=== PATIENT | male | born 1950 | race Hispanic/Latino ===

== ENCOUNTER 2019-12-29 18:15 | Emergency (ER) | payer OTHER ==
[2019-12-29] MEDS ORDERED: TOBRAMYCIN SULF 0.3% OPTH OINT ONE (19:06)
[2019-12-29] MEDS ORDERED: TETRACAINE HCL 0.5% 4ML OPTH ONE (19:06)
[2019-12-29] MEDS ORDERED: FLUORESCEIN SODIUM 1 MG/WRAP ONE (19:06)
--- NOTE | 2019-12-29 19:59 | ER ---
Nurse's Notes [facility] Name: Feliz Aguilar Age: 69 yrs Sex: Male : 1950 Arrival Date: 12/29/2019 Time: 18:19 Bed 16 Private MD: Hong Enriquez H Diagnosis: Injury of conjunctiva and corneal abrasion without foreign body Presentation: 12/28 18:23 Chief complaint: Patient states: Feels like something is in right eye since last night. ll1 + redness and watering. Coronavirus screen: Client denies travel out of the [place] in the last 14 days. At this time, the client does not indicate any symptoms associated with coronavirus-19. Ebola Screen: Patient denies travel to an Ebola-affected area in the 21 days before illness onset. Initial Sepsis Screen: Does the patient meet any 2 criteria? No. Patient's initial sepsis screen is negative. Risk Assessment: Do you want to hurt yourself or someone else? Patient reports no desire to harm self or others. Onset of symptoms was December 28, 2019. 18:23 Method Of Arrival: Ambulatory ll1 18:23 Acuity: RAYNA 3 ll1 Triage Assessment: 18:30 General: Appears in no apparent distress. uncomfortable, Behavior is cooperative, bp appropriate for age, anxious. Pain: Complains of pain in right eye. EENT: Reports pain in right eye. Neuro: No deficits noted. Cardiovascular: No deficits noted. Respiratory: No deficits noted. GI: No signs and/or symptoms were reported involving the gastrointestinal system. : No signs and/or symptoms were reported regarding the genitourinary system. Derm: No deficits noted. Musculoskeletal: No deficits noted. Historical: - Allergies: 18:25 No Known Allergies; ll1 - PSHx: 18:25 Cholecystectomy; ll1 - Immunization history:: Flu vaccine is not up to date. - Social history:: Smoking status: Patient denies any tobacco usage or history of. Screenin:30 Abuse screen: Denies threats or abuse. Denies injuries from another. Nutritional bp screening: No deficits noted. Tuberculosis screening: No symptoms or risk factors identified. Fall Risk None identified. Assessment: 18:30 General: SEE TRIAGE NOTE. bp 19:20 General: Appears in no apparent distress. comfortable, Behavior is calm, cooperative, rr5 appropriate for age. Neuro: Level of Consciousness is awake, alert, obeys commands, Oriented to person, place, time. Cardiovascular: Capillary refill < 3 seconds Patient's skin is warm and dry. Respiratory: Airway is patent Respiratory effort is Respiratory pattern is regular, symmetrical. GI: No signs and/or symptoms were reported involving the gastrointestinal system. : No signs and/or symptoms were reported regarding the genitourinary system. EENT: Sclera/Cornea are reddened in outer aspect of conjuctiva of right eye and inner aspect of conjuctiva of right eye. Derm: Skin is intact, is healthy with good turgor, Skin temperature is warm. Musculoskeletal: Capillary refill < 3 seconds. 19:20 Pain: Complains of pain in right eye. rr5 20:12 Reassessment: Patient appears in no apparent distress at this time. Patient is alert, rr5 oriented x 3, equal unlabored respirations, skin warm/dry/pink. discharge instruction given and explained without complaints made. Vital Signs: 18:23 BP 154 / 111; Pulse 79; Resp 18; Temp 98.5; Pulse Ox 98% ; Pain 5/10; ll1 19:50 BP 129 / 72; Pulse 64; Resp 16; Temp 98.5; Pulse Ox 100% ; rr5 ED Course: 18:19 Patient arrived in ED. mr 18:19 Hong Enriquez DO is Private Physician. mr 18:24 Triage completed. ll1 18:25 Arm band placed on Patient placed in an exam room, on a stretcher. ll1 18:30 Patient has correct armband on for positive identification. Bed in low position. Call bp light in reach. Side rails up X2. 18:41 Shabnam Whelan FNP-C is [facility]. snw 18:41 Jasmeet Park MD is Attending Physician. snw 18:44 Dereck John, SOFIE is Primary Nurse. bp 19:40 Assist provider with eye exam of right eye. using fluorescein stain, Performed by rr5 Shabnam LAWLER Patient tolerated well. 20:12 Patient did not have IV access during this emergency room visit. rr5 Administered Medications: 18:56 Drug: Fluorescein Strip 1 strip {Note: AT B/S.} Route: Ophthalmic; Site: right eye; bp 18:56 Drug: Tetracaine Drops 0.5 % 1 drops {Note: AT B/S.} Route: Ophthalmic; Site: right eye;bp 18:56 Drug: Tobramycin Ointment (0.3 %) 1 application {Note: AT B/S.} Route: Ophthalmic; bp Site: right eye; Outcome: 19:58 Discharge ordered by . yvrose 20:12 Discharged to home ambulatory. rr5 20:12 Condition: stable 20:12 Discharge instructions given to patient, Instructed on discharge instructions, follow up and referral plans. medication usage, Demonstrated understanding of instructions, follow-up care, medications, Prescriptions given X 1. 20:14 Patient left the ED. rr5 Signatures: Shabnam Whelan, NURIS AUTO OVERHAULER-Vonda Castillo Brian, RN RN bp Austin Mendiola RN RN rr5 Eleazar Easley RN RN ll1 Corrections: (The following items were deleted from the chart) 20:14 20:12 No provider procedures requiring assistance completed. rr5 rr5
--- NOTE | 2019-12-29 19:59 | EDPHYS ---
Physician Documentation [facility] Name: Feliz Aguilar Age: 69 yrs Sex: Male : 1950 Arrival Date: 12/29/2019 Time: 18:19 Bed 16 Private MD: Hong Enriquez H ED Physician Jasmeet Park HPI: 12/28 20:05 This 69 yrs old Male presents to ER via Ambulatory with complaints of Eye snw Problem. 19:48 The patient is experiencing pain, tearing. Onset: The symptoms/episode began/occurred snw suddenly, yesterday. Duration: the symptoms are continuous. Associated signs and symptoms: Pertinent positives: None. Patient does not utilize any form of vision correction. Severity of symptoms: At their worst the symptoms were moderate in the emergency department the symptoms are unchanged. The patient has not experienced similar symptoms in the past. It is unknown whether or not the patient has recently seen a physician. Historical: - Allergies: 18:25 No Known Allergies; ll1 - PSHx: 18:25 Cholecystectomy; ll1 - Immunization history:: Flu vaccine is not up to date. - Social history:: Smoking status: Patient denies any tobacco usage or history of. ROS: 19:48 Constitutional: Negative for fever, chills, and weight loss, ENT: Negative for injury, snw pain, and discharge, Neck: Negative for injury, pain, and swelling, Cardiovascular: Negative for chest pain, palpitations, and edema, Respiratory: Negative for shortness of breath, cough, wheezing, and pleuritic chest pain, Abdomen/GI: Negative for abdominal pain, nausea, vomiting, diarrhea, and constipation, Back: Negative for injury and pain, : Negative for injury, bleeding, discharge, and swelling, MS/Extremity: Negative for injury and deformity, Skin: Negative for injury, rash, and discoloration, Neuro: Negative for headache, weakness, numbness, tingling, and seizure, Psych: Negative for depression, anxiety, suicide ideation, homicidal ideation, and hallucinations. 19:48 Eyes: Positive for foreign body sensation, pain, tearing, of the iris of right eye and inner aspect of conjuctiva of right eye. Exam: 19:47 Constitutional: This is a well developed, well nourished patient who is awake, alert, snw and in no acute distress. Head/Face: Normocephalic, atraumatic. ENT: Nares patent. No nasal discharge, no septal abnormalities noted. Tympanic membranes are normal and external auditory canals are clear. Oropharynx with no redness, swelling, or masses, exudates, or evidence of obstruction, uvula midline. Mucous membranes moist. Neck: Trachea midline, no thyromegaly or masses palpated, and no cervical lymphadenopathy. Supple, full range of motion without nuchal rigidity, or vertebral point tenderness. No Meningismus. Chest/axilla: Normal chest wall appearance and motion. Nontender with no deformity. No lesions are appreciated. Cardiovascular: Regular rate and rhythm with a normal S1 and S2. No gallops, murmurs, or rubs. Normal PMI, no JVD. No pulse deficits. Respiratory: Lungs have equal breath sounds bilaterally, clear to auscultation and percussion. No rales, rhonchi or wheezes noted. No increased work of breathing, no retractions or nasal flaring. Abdomen/GI: Soft, non-tender, with normal bowel sounds. No distension or tympany. No guarding or rebound. No evidence of tenderness throughout. Back: No spinal tenderness. No costovertebral tenderness. Full range of motion. Skin: Warm, dry with normal turgor. Normal color with no rashes, no lesions, and no evidence of cellulitis. MS/ Extremity: Pulses equal, no cyanosis. Neurovascular intact. Full, normal range of motion. Neuro: Awake and alert, GCS 15, oriented to person, place, time, and situation. Cranial nerves II-XII grossly intact. Motor strength 5/5 in all extremities. Sensory grossly intact. Cerebellar exam normal. Normal gait. Psych: Awake, alert, with orientation to person, place and time. Behavior, mood, and affect are within normal limits. 19:47 Eyes: Periorbital structures: appear normal, Pupils: no acute changes, Extraocular movements: no acute changes, Conjunctiva: normal, Corneas: abrasion, that is small, a fluorescein strip employed to appreciate the findings, over pupil, Sclera: no appreciated abnormality, Lids and lashes: appear normal. Vital Signs: 18:23 BP 154 / 111; Pulse 79; Resp 18; Temp 98.5; Pulse Ox 98% ; Pain 5/10; ll1 19:50 BP 129 / 72; Pulse 64; Resp 16; Temp 98.5; Pulse Ox 100% ; rr5 Procedures: 19:57 Eye Exam: corneal abrasion over pupil noted. snw MDM: 19:12 Patient medically screened. snw 19:48 Data reviewed: vital signs, nurses notes. Data interpreted: Pulse oximetry: on room air snw is 100 %. Interpretation: normal. Counseling: I had a detailed discussion with the patient and/or guardian regarding: the historical points, exam findings, and any diagnostic results supporting the discharge/admit diagnosis, the need for outpatient follow up, to return to the emergency department if symptoms worsen or persist or if there are any questions or concerns that arise at home. Special discussion: Based on the history and exam findings, there is no indication for further emergent testing or inpatient evaluation. I discussed with the patient/guardian the need to see the opthamologist for further evaluation of the symptoms. 12/28 18:45 Order name: Eye Tray; Complete Time: 18:57 snw 12/28 19:47 Order name: VS Recheck; Complete Time: 19:51 snw Administered Medications: 18:56 Drug: Fluorescein Strip 1 strip {Note: AT B/S.} Route: Ophthalmic; Site: right eye; bp 18:56 Drug: Tetracaine Drops 0.5 % 1 drops {Note: AT B/S.} Route: Ophthalmic; Site: right eye;bp 18:56 Drug: Tobramycin Ointment (0.3 %) 1 application {Note: AT B/S.} Route: Ophthalmic; bp Site: right eye; Disposition: 12/29 14:55 Co-signature as Attending Physician, Jasmeet Park MD I agree with the assessment and kdr plan of care. Disposition: 12/29/19 19:58 Discharged to Home. Impression: Injury of conjunctiva and corneal abrasion without foreign body. - Condition is Stable. - Discharge Instructions: Corneal Abrasion. - Prescriptions for Diclofenac Sodium 75 mg Oral Tablet Sustained Release - take 1 tablet by ORAL route 2 times per day; 30 tablet. - Medication Reconciliation Form, Thank You Letter, Antibiotic Education, Prescription Opioid Use form. - Follow up: Emergency Department; When: As needed; Reason: Worsening of condition. Follow up: Private Physician; When: 2 - 3 days; Reason: Recheck today's complaints, Continuance of care, Re-evaluation by your physician. Signatures: Jasmeet Park MD MD kdr Waters, Shelly, BENZENE STILL UTILITY OPERATOR-C BENZENE STILL UTILITY OPERATOR-Csnw Dereck John, SOFIE RN bp Austin Mendiola, SOFIE RN rr5 Eleazar Easley RN RN ll1 Corrections: (The following items were deleted from the chart) 12/28 20:14 19:58 12/29/2019 19:58 Discharged to Home. Impression: Injury of conjunctiva and rr5 corneal abrasion without foreign body. Condition is Stable. Forms are Medication Reconciliation Form, Thank You Letter, Antibiotic Education, Prescription Opioid Use. Follow up: Emergency Department; When: As needed; Reason: Worsening of condition. Follow up: Private Physician; When: 2 - 3 days; Reason: Recheck today's complaints, Continuance of care, Re-evaluation by your physician. snw
[2019-12-29 20:38] VITALS: BP 129/72; TEMP 98.5; O2SAT 100
== END 2019-12-29 20:14 | disposition home or self-care (01) ==
LOC: ER 18:15
DX: S05.01XA Injury of conjunctiva and corneal abrasion without foreign body, right eye, initial encounter (principal)
CPT/HCPCS: 99283

== ENCOUNTER 2020-05-12 10:01 | Emergency (ER) | payer OTHER ==
--- NOTE | 2020-05-12 11:11 | ER ---
Nurse's Notes [facility] Name: Feliz Aguilar Age: 69 yrs Sex: Male : 1950 Arrival Date: 05/12/2020 Time: 10:06 Bed Waiting Private MD: Diagnosis: Presentation: 02 10:08 Chief complaint: Patient states: SOB x 3 days. Was seen at [facility] on Tuesday and sent sv home with prescriptions. Pt reports no improvement, states he usually goes across the street and they give him breathing treatment and a steroid injection but did not get that at [facility]. Coronavirus screen: Client denies travel out of the [place] in the last 14 days. At this time, the client does not indicate any symptoms associated with coronavirus-19. Ebola Screen: No symptoms or risks identified at this time. Initial Sepsis Screen: Does the patient meet any 2 criteria? No. Patient's initial sepsis screen is negative. Does the patient have a suspected source of infection? No. Patient's initial sepsis screen is negative. Risk Assessment: Do you want to hurt yourself or someone else? Patient reports no desire to harm self or others. Onset of symptoms was May 09, 2020. 10:08 Method Of Arrival: Ambulatory sv 10:08 Acuity: RAYNA 3 sv Historical: - Allergies: 10:12 No Known Allergies; sv - PMHx: 10:12 None; sv - PSHx: 10:12 Cholecystectomy; sv - Immunization history:: Adult Immunizations up to date. - Social history:: Smoking status: Patient denies any tobacco usage or history of. Assessment: 11:09 Reassessment: Pt called to exam room. No answer x 2. Unable to locate patient. Security ss officer states that he saw patient leave. Vital Signs: 10:08 BP 137 / 81; Pulse 67; Resp 20; Temp 98.7(TE); Pulse Ox 97% ; Weight 72.57 kg; Height 5 sv ft. 8 in. (172.72 cm); Pain 0/10; 10:08 Body Mass Index 24.33 (72.57 kg, 172.72 cm) sv ED Course: 10:06 Patient arrived in ED. mr 10:11 Triage completed. sv 10:12 Arm band placed on. sv 11:04 Robinson Yuen MD is Attending Physician. rn Administered Medications: No medications were administered Outcome: 11:09 Eloped from waiting room. ss 11: unknown 11:10 Patient left the ED. ss Signatures: Taina Candelario RN RN Vonda Rendon Roman, MD MD rn Smirch, Shelby, RN RN
[2020-05-12 11:15] VITALS: BP 137/81; TEMP 98.7; O2SAT 97
--- OUTSIDE RECORDS SUMMARY | 2020-05-13 21:34 | XMS REPORT | Continuity of Care Document ---
:1950 Author Organization [facility] t Address [address] [place] [address] [address] [place] [address] Care Team Providers Name Role Phone Sd MARTINEZ Attending Clinician Problems This patient has no known problems. Allergies, Adverse Reactions, Alerts This patient has no known allergies or adverse reactions. Medications This patient has no known medications. Procedures This patient has no known procedures. Encounters Start End Encounter Admission Attending Care Care Encounter Source Date/Time Date/Time Type Type Clinicians Facility Department ID 2020-05-09 2020-05-09 [facility] [id number] 17:48:00 21:02:00 Jasmeet Richardson [id number] [place] [id number] [place] [id number] Results This patient has no known results.
--- OUTSIDE RECORDS SUMMARY | 2020-05-13 21:35 | XMS REPORT | Summary of Care ---
:1950 Author Organization [facility] - Health Address [address] [place] [id number] Care Team Providers Name Role Phone Pcp, Patient Does Not Have A Primary Care Provider +[id number] Reason for Referral (Routine) Status Reason Specialty Diagnoses / Referred By Contact Refe rred To Procedures Contact New Request Diagnoses Reactive depression Grieving Decreased appetite Insomnia, unspecified type Jasmeet Beaver Colbert, W[place] Procedures Discharge Follow-up: PCP SWATI ETIENNE; 1 Week JUAN Mercado MD [address] [place] [address], [place] [phone] Phone: Phone: Fax: Reason for Visit Reason Comments Anorexia x 10 days Auth/Cert Status Reason Specialty Diagnoses / Referred By Referred To Procedures Contact Contact Emergency Medicine [facility]ency [facility] [address] [place] [address] Fax: Encounter Details Date Type Department Care Team Description 05/09/2020 Emergency ADC-Emergency Jasmeet Beaver FNP Reactive depression (Primary Dx); Department [address] [place] [address] Grieving; [address] [place], [place] Decreased appetite; Drive [phone] Insomnia, unspecified type [place] [id number] Allergies No Known Allergiesdocumented as of this encounter (statuses as of 05/09/2020) Medications Medication Sig Dispensed Refills Start Date End Date Status ondansetron (ZOFRAN Take 1 tablet by 16 tablet 0 05/09/2020 Active ODT) 4 mg mouth every 8 disintegrating (eight) hours as tabletIndications: needed for Nausea Reactive depression, and Vomiting Grieving, Decreased (N/V). appetite, Insomnia, unspecified type albuterol 90 Inhale 2 Puffs 8.5 g 0 05/09/2020 A ctive mcg/actuation every 4 (four) inhalerIndications: hours as needed Reactive depression, for Wheezing or Grieving, Decreased Shortness of appetite, Insomnia, Breath. unspecified type documented as of this encounter (statuses as of 05/09/2020) Active Problems No known active problemsdocumented as of this encounter (statuses as of 05/09/2020) Social History Tobacco Use Types Packs/Day Years Used Date Never Assessed Sex Assigned at Date Recorded Not on file COVID-19 Exposure Response Date Recorded In the last month, have you been in contact with Yes 05/09/2020 5:38 PM SECOND VP HR ASSESSMENT someone who was confirmed or suspected to have Coronavirus / COVID-19? documented as of this encounter Last Filed Vital Signs Vital Sign Reading Time Taken Comments Blood Pressure 153/63 05/09/2020 8:56 PM SECOND VP HR ASSESSMENT Pulse 87 05/09/2020 8:56 PM SECOND VP HR ASSESSMENT Temperature 37.1 C (98.7 F) 05/09/2020 5:44 PM SECOND VP HR ASSESSMENT Respiratory Rate 16 05/09/2020 8:56 PM SECOND VP HR ASSESSMENT Oxygen Saturation 97% 05/09/2020 8:56 PM SECOND VP HR ASSESSMENT Inhaled Oxygen Concentration - - Weight 74.8 kg (165 lb) 05/09/2020 6:07 PM SECOND VP HR ASSESSMENT Height - - Body Mass Index - - documented in this encounter Discharge Instructions InstructionsJasmeet Beaver FNP - 05/09/2020 DIAGNOSIS ICD-10-CM ICD-9-CM 1. Reactive depression F32.9 300.4 2. Grieving F43.21 309.0 3. Decreased appetite R63.0 783.0 4. Insomnia, unspecified type G47.00 780.52 NO LIFE-THREATENING FINDINGS ON TODAY'S EXAM. SPECIAL CARE INSTRUCTIONS: Stay well hydrated Follow up with PCP Return to ER as needed FOLLOW-UP RECOMMENDATIONS: RECOMMEND FOLLOW-UP WITH A PRIMARY CARE PROVIDER OR SPECIALIST IN 2-5 DAYS, ESPECIALLY IF NO IMPROVEMENT IN SYMPTOMS. TO FOLLOW-UP WITHIN THE [facility], TRY THESE OPTIONS (CLINIC APPOINTMENTS AVAILABLE ON [id number] BASIS): 1. SCHEDULE AN APPOINTMENT ONLINE AT [facility] 2. OR CALL THE [facility] ACCESS CENTER AT OR 3. OR CALL YOUR [facility] PHYSICIAN'S OFFICE DIRECTLY IF YOU ARE ALREADY AN ESTABLISHED [facility] PATIENT. OR, YOU MAY FOLLOW-UP WITH A PROVIDER OF YOUR CHOICE, SUCH : 1. A PHYSICIAN OF YOUR CHOICE 2. [facility], . LOCATIONS IN [facility] 3. [facility], [address], [place]; [phone] RETURN TO ER FOR WORSENING OF SYMPTOMS. AttachmentsThe following attachments cannot be sent through Care Everywhere.Your Mind and Body, Depression Affects (Bahamian)Grief and Loss, Helping Yourself Through (Bahamian)Insomnia (Bahamian)documented in this encounter ED Notes Fahad Paula, SOFIE - 05/09/2020 5:44 PM CSTLost 10 days ago. States " 47 years and I just have no desire to eat and can't sleep. All I ate yesterday was 3 egg rolls". Has not eaten anything today. documented in this encounter Miscellaneous Notes ED Nurse Note - Jaelyn Fowler RN - 05/09/2020 8:58 PM CSTPt given printed and verbal discharge instructions regarding reactive depression, grieving, decreased appetite, and insomnia, encouraged hydration. Prescriptions provided, prescriptions sent to [facility] in [place]. Pt encouraged to seek grief counselor. Pt verbalized understanding of instructions, pt awake alert oriented, resp reg unlabored, skin w/d, color appropriate for race, moves all ext well, pt encouraged to follow up with PCP. Advised to seek medical attention for new/prolonged/worsening of symptoms. Symptoms addressed. No adverse reaction to meds given in ER noted upon discharge. PIV d'cd, dressing to site, catheter intact. Pt leaving amb with steady gait, in no apparent distress. documented in this encounter Plan of Treatment Health Maintenance Due Date Last Done Comments HEPATITIS C (HCV) SCREEN 1950 Depression Screening 1964 SARS-CoV-2 (COVID-19) Vaccine (1 of 2) 1968 DTaP,Tdap,and Td Vaccines (1 - Tdap) 11/07/1971 COLON CANCER SCREENING ANNUAL FIT/FOBT 2002 COLON CANCER SCREENING FIT DNA EVERY 3 YEARS 2002 COLON CANCER SCREENING SIGMOIDOSCOPY EVERY 5 YEARS 2002 COLONOSCOPY 2002 Colorectal Cancer Screening 2002 Zoster Recombinant Vaccine (SHINGRIX) (1 of 2) 2002 Medicare Wellness Visit 2017 PNEUMOCOCCAL VACCINES 65+ (1 of 1 - PPSV23) 2017 INFLUENZA VACCINE (#1) 2019 documented as of this encounter Procedures Procedure Name Priority Date/Time Associated Diagnosis Comme nts CBC WITHOUT DIFF STAT 05/09/2020 6:19 PM Reactive de pression Results for this SECOND VP HR ASSESSMENT Grieving procedure are i n the results section. BASIC METABOLIC STAT 05/09/2020 6:19 PM Reactive dep ression Results for this PANEL (NA, K, CL, SECOND VP HR ASSESSMENT Grieving procedure are in CO2, GLUCOSE, BUN, the resul ts CREATININE, CA) section. NOTICE OF PRIVACY Routine 05/09/2020 5:38 PM PRACTICES SECOND VP HR ASSESSMENT documented in this encounter Results BASIC METABOLIC PANEL (NA, K, CL, CO2, GLUCOSE, BUN, CREATININE, CA) (05/09/2020 6:19 PM SECOND VP HR ASSESSMENT) Pathologist Sig nature NA 137 135 - 145 [facility] mmol/L [facility] K 3.2 (L) 3.5 - 5.0 [facility] mmol/L HOSPITAL [facility] CL 99 98 - 108 mmol/L [facility] CO2 TOTAL 26 23 - 31 mmol/L [facility] AGAP 12 2 - 16 [facility] BUN 9 7 - 23 mg/dL [facility] GLUCOSE 93 70 - 110 mg/dL [facility] CREATININE 0.64 0.60 - 1.25 [facility] mg/dL [facility] CALCIUM 8.5 (L) 8.6 - 10.6 [facility] mg/dL HOSPITAL [facility] eGFR Calculation 124.7 mL/min/1.73m2 [facility] ([facility] Malaysian) eGFR Calculation 151.2 mL/min/1.73m2 [facility] () [facility] Specimen Blood - VENOUS Narrative Performed At Association of Glomerular Filtration Rate (GFR) [facility] and Staging of Kidney Disease* + + +- + | GFR (mL/min/1.73 m2) | With Kidney Damage | Without Kidney Damage + + +- + | >90 | Stage one | Normal + + +- + | 60-89 | Stage two | Decreased GFR + + +- + | 30-59 | Stage three | Stage three + + +- + | 15-29 | Stage four | Stage four + + +- + | <15 (or dialysis) | Stage five | Stage five + + +- + *Each stage assumes the associated GFR level has been in effect for at least three months. Stages 1 to 5, with or without kidney disease, indicate chronic kidney disease. Notes: Determination of stages one and two (with eGFR >59mL/min/1.73 m2) requires estimation of kidney damage for at least three months as defined by structural or functional abnormalities of the kidney, manifested by either: Pathological abnormalities or Markers of kidney damage (including abnormalities in the composition of the blood or urine or abnormalities in imaging tests). Performing Organization Address City/State/Zipcode Phone Number [facility] CLIA: [id number] [place] [address] CBC WITHOUT DIFF (05/09/2020 6:19 PM SECOND VP HR ASSESSMENT) Pathologist Sig nature WBC 5.82 4.20 - 10.70 [facility] 10*3/L [facility] RBC 4.74 4.26 - 5.52 10*6/L [facility] HGB 14.3 12.2 - 16.4 g/dL [facility] HCT 41.9 38.4 - 49.3 % [facility] MCH 30.2 26.1 - 32.7 pg [facility] MCV 88.4 81.7 - 95.6 fL [facility] MCHC 34.1 31.2 - 35.0 g/dL [facility] PLT 170 150 - 328 10*3/L [facility] MPV 10.6 9.8 - 13.0 fL [facility] RDW-CV 12.1 12.1 - 15.4 % [facility] RDW-SD 39.4 38.5 - 51.6 fL [facility] NRBC x10^3 <0.01 10*3/L [facility] NRBC/100 WBC 0.0 0.0 - 10.0 /100 WBCs [facility] IPF % [facility] Specimen Blood - VENOUS Performing Organization Address City/State/Zipcode Phone Number [facility] CLIA: [id number] [place] [address] documented in this encounter Visit Diagnoses Diagnosis Reactive depression - Primary Dysthymic disorder Grieving Adjustment disorder with depressed mood Decreased appetite Anorexia Insomnia, unspecified type documented in this encounter Administered Medications Medication Order MAR Action Action Date Dose Rate Site NaCl 0.9% (NS) bolus New Bag 05/09/2020 7:59 PM SECOND VP HR ASSESSMENT 1,000 mL 99 9 mL/hr infusion 1,000 mL at 999 mL/hr, 1,000 mL, IV Infusion, ONCE, 1 dose, 05/09/20 at 1830, STAT ondansetron (ZOFRAN-ODT) disintegrating tablet Given 0 05/09/2020 6:12 PM SECOND VP HR ASSESSMENT 4 mg 4 mg 4 mg, Oral, ONCE, 1 dose, Tue05/09/20 at 1915, Routine documented in this encounter Additional Health Concerns Infection Onset Date Last Indicated Resolved Time COVID-19 Confirmed 04/29/2020 04/29/2020 documented as of this encounter Insurance Payer Benefit Plan / Subscriber ID Effective Dates Phone Addre ss Type Group MEDICARE MEDICARE PART [id number] 2017-Karlo [phone] Medicare A & B t 2 [id number] LETI GRAY [id number] documented as of this encounter
== END 2020-05-12 11:10 | disposition left against medical advice (07) ==
LOC: ER 10:01
DX: R06.02 Shortness of breath (principal); Z53.21 Procedure and treatment not carried out due to patient leaving prior to being seen by health care provider
CPT/HCPCS: 99281

== ENCOUNTER 2020-09-13 07:43 | Emergency (ER) | payer OTHER ==
--- NOTE | 2020-09-13 08:41 | RAD REPORT ---
EXAM DESCRIPTION: RAD - Chest Single View - 09/13/2020 8:22 am CLINICAL HISTORY: COUGH, shortness of breath COMPARISON: May 2016 TECHNIQUE: AP portable chest image was obtained 09/13/2020 8:22 am . FINDINGS: No peripheral mass, consolidation, failure or volume overload finding. A few small calcifi ed granulomata noted. Heart and vasculature are normal. No measurable pleural effusion and no pneumot horax. No acute bony abnormality seen. No acute aortic findings suspected. IMPRESSION: No acute cardiopulmonary process. No significant change from comparison study.
--- NOTE | 2020-09-13 08:49 | EDPHYS ---
Physician Documentation [facility] Name: Feliz Aguilar Age: 69 yrs Sex: Male : 1950 Arrival Date: 09/13/2020 Time: 07:44 Bed 4 Private MD: ED Physician Robinson Yuen HPI: 09/13 08:19 This 69 yrs old Male presents to ER via Ambulatory with complaints of rn bronchitis. 08:19 The patient or guardian reports cough, that is intermittent, described as mild, with rn productive sputum. Onset: The symptoms/episode began/occurred 3 day(s) ago. Severity of symptoms: At their worst the symptoms were mild, in the emergency department the symptoms are unchanged. Modifying factors: The symptoms are alleviated by nothing, the symptoms are aggravated by nothing. Associated signs and symptoms: Pertinent negatives: fever. The patient has experienced similar episodes in the past. The patient has not recently seen a physician. 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 . Came in today not because feels bad, but because couldn't get appt with pcp in time. . Historical: - Allergies: 07:54 No Known Allergies; ll1 - PMHx: 07:54 None; ll1 - PSHx: 07:54 Cholecystectomy; ll1 - Immunization history:: Flu vaccine is not up to date. - Social history:: Smoking status: Patient denies any tobacco usage or history of. - Family history:: not pertinent. - Hospitalizations: : No recent hospitalization is reported. ROS: 08:19 Constitutional: Negative for fever, chills, and weight loss, Eyes: Negative for injury, rn pain, redness, and discharge, Neck: Negative for injury, pain, and swelling, Cardiovascular: Negative for chest pain, palpitations, and edema, Respiratory: + cough Abdomen/GI: Negative for abdominal pain, nausea, vomiting, diarrhea, and constipation, Back: Negative for injury and pain, : Negative for injury, bleeding, discharge, and swelling, MS/Extremity: Negative for injury and deformity, Skin: Negative for injury, rash, and discoloration, Neuro: Negative for headache, weakness, numbness, tingling, and seizure. Exam: 08:19 Constitutional: This is a well developed, well nourished patient who is awake, alert, rn and in no acute distress. Head/Face: Normocephalic, atraumatic. ENT: No stridor Cardiovascular: Regular rate and rhythm. No pulse deficits. Respiratory: No increased work of breathing, no retractions or nasal flaring. Abdomen/GI: soft, non-tender Skin: Warm, dry MS/ Extremity: Pulses equal, no cyanosis. Neuro: Awake and alert, GCS 15 Vital Signs: 07:54 BP 132 / 78; Pulse 70; Resp 17; Temp 98.1; Pulse Ox 96% on R/A; Weight 77.11 kg; Height ll1 5 ft. 9 in. (175.26 cm); Pain 0/10; 08:59 BP 135 / 75; Pulse 73; Resp 16; Temp 98.1; Pulse Ox 97% ; bp 07:54 Body Mass Index 25.10 (77.11 kg, 175.26 cm) ll1 MDM: 07:55 Patient medically screened. rn 08:48 Differential Diagnosis: Bronchitis Upper Respiratory Infection Viral Syndrome rn Pneumonia. Data reviewed: vital signs, nurses notes, radiologic studies, plain films, and as a result, I will discharge patient. Counseling: I had a detailed discussion with the patient and/or guardian regarding: the historical points, exam findings, and any diagnostic results supporting the discharge/admit diagnosis, radiology results, the need for outpatient follow up, to return to the emergency department if symptoms worsen or persist or if there are any questions or concerns that arise at home. Special discussion: I discussed with the patient/guardian in detail that at this point there is no indication for admission to the hospital. It is understood, however, that if the symptoms persist or worsen the patient needs to return immediately for re-evaluation. 09/13 08:01 Order name: XRAY Chest (1 view); Complete Time: 08:48 rn Administered Medications: No medications were administered Disposition: 09/13/20 08:49 Discharged to Home. Impression: Cough, Asthma. - Condition is Stable. - Discharge Instructions: Cough, Adult. - Prescriptions for Prednisone 20 mg Oral Tablet - take 3 tablet by ORAL route once daily for 5 days; 15 tablet. Zithromax Z- José Antonio 250 mg Oral Tablet - take 1 tablet by ORAL route as directed for 5 days Day 1 - take two (2) tablets one time. Day 2, 3, 4 , 5 take one (1) tablet once daily.; 6 tablet. Albuterol Sulfate 90 mcg/actuation - inhale 1-2 puff by INHALATION route every 4-6 hours; 1 Inhaler. - Medication Reconciliation Form, Thank You Letter, Antibiotic Education, Prescription Opioid Use form. - Follow up: Private Physician; When: As needed; Reason: Recheck today's complaints, Re-evaluation by your physician. - Problem is new. - Symptoms have improved. Signatures: Dispatcher [employer] EDMS Robinson Yuen MD MD rn Dereck John RN RN Eleazar Smith RN RN ll1 Corrections: (The following items were deleted from the chart) 09:00 08:49 09/13/2020 08:49 Discharged to Home. Impression: Cough; Asthma. Condition is bp Stable. Forms are Medication Reconciliation Form, Thank You Letter, Antibiotic Education, Prescription Opioid Use. Follow up: Private Physician; When: As needed; Reason: Recheck today's complaints, Re-evaluation by your physician. Problem is new. Symptoms have improved. rn
--- NOTE | 2020-09-13 08:49 | ER ---
Nurse's Notes [facility] Name: Feliz Aguilar Age: 69 yrs Sex: Male : 1950 Arrival Date: 09/13/2020 Time: 07:44 Bed 4 Private MD: Diagnosis: Cough;Asthma Presentation: 09/13 07:54 Chief complaint: Patient states: Cough and SOB since Tuesday. 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 No fever. Coronavirus screen: Client denies travel out of the [place] in the last 14 days. cough unrelated to allergies, difficulty breathing, shortness of breath, Client presents with at least one sign or symptom that may indicate coronavirus-19. Standard/surgical mask placed on the client. Ebola Screen: Patient denies travel to an Ebola-affected area in the 21 days before illness onset. Initial Sepsis Screen: Does the patient meet any 2 criteria? No. Patient's initial sepsis screen is negative. Does the patient have a suspected source of infection? Yes: Productive cough/pneumonia. Risk Assessment: Do you want to hurt yourself or someone else? Patient reports no desire to harm self or others. Onset of symptoms was September 10, 2020. 07:54 Method Of Arrival: Ambulatory [facility] 07:54 Acuity: RAYNA 3 ll1 Triage Assessment: 08:00 General: Appears in no apparent distress. uncomfortable, Behavior is calm, cooperative, bp appropriate for age. Pain: Denies pain. EENT: No deficits noted. Neuro: Level of Consciousness is awake, alert, obeys commands, Oriented to Appropriate for age. Cardiovascular: No deficits noted. Respiratory: Reports cough that is. GI: No signs and/or symptoms were reported involving the gastrointestinal system. : No signs and/or symptoms were reported regarding the genitourinary system. Derm: No deficits noted. Musculoskeletal: No deficits noted. Historical: - Allergies: 07:54 No Known Allergies; ll1 - PMHx: 07:54 None; ll1 - PSHx: 07:54 Cholecystectomy; ll1 - Immunization history:: Flu vaccine is not up to date. - Social history:: Smoking status: Patient denies any tobacco usage or history of. - Family history:: not pertinent. - Hospitalizations: : No recent hospitalization is reported. Screenin:00 Abuse screen: Denies threats or abuse. Denies injuries from another. Nutritional bp screening: No deficits noted. On. Tuberculosis screening: No symptoms or risk factors identified. Fall Risk None identified. Assessment: 08:00 General: SEE TRIAGE NOTE. bp 08:59 Reassessment: PT D/C HOME AMBULATORY, DX WITH COUGH/ASTHMA. bp Vital Signs: 07:54 BP 132 / 78; Pulse 70; Resp 17; Temp 98.1; Pulse Ox 96% on R/A; Weight 77.11 kg; Height ll1 5 ft. 9 in. (175.26 cm); Pain 0/10; 08:59 BP 135 / 75; Pulse 73; Resp 16; Temp 98.1; Pulse Ox 97% ; bp 07:54 Body Mass Index 25.10 (77.11 kg, 175.26 cm) ll1 ED Course: 07:44 Patient arrived in ED. as 07:54 Arm band placed on Patient placed in an exam room, on a stretcher. ll1 07:55 Robinson Yuen MD is Attending Physician. rn 07:56 Dereck oJhn, SOFIE is Primary Nurse. bp 07:56 Triage completed. ll1 08:00 Patient has correct armband on for positive identification. Bed in low position. Call bp light in reach. Side rails up X2. 08:22 XRAY Chest (1 view) In Process Unspecified. EDMS 08:59 No provider procedures requiring assistance completed. Patient did not have IV access bp during this emergency room visit. Administered Medications: No medications were administered Outcome: 08:49 Discharge ordered by . rn 08:59 Discharged to home ambulatory. bp 08:59 Condition: stable 08:59 Discharge instructions given to patient, Instructed on discharge instructions, follow up and referral plans. medication usage, Demonstrated understanding of instructions, follow-up care, medications, Prescriptions given X 3. 09:00 Patient left the ED. bp Signatures: Dispatcher [employer] EDMS Deana Wayne as Robinson Yuen MD MD rn Peltier, Brian, Eleazar Perkins RN, RN RN ll1
[2020-09-13 09:05] VITALS: TEMP 98.1
[2020-09-13 09:06] VITALS: BP 135/75; O2SAT 97
== END 2020-09-13 09:00 | disposition home or self-care (01) ==
LOC: ER 07:43
DX: J45.909 Unspecified asthma, uncomplicated (principal)
CPT/HCPCS: 71045; 99283

== ENCOUNTER 2022-08-23 16:40 | Emergency (ER) | payer OTHER ==
[2022-08-23] MEDS ORDERED: TETRACAINE HCL 0.5% 4ML OPTH ONE (17:12)
[2022-08-23] MEDS ORDERED: FLUORESCEIN SODIUM 1 MG/WRAP ONE (17:14)
--- NOTE | 2022-08-23 17:14 | EDPHYS ---
Physician Documentation [facility] Name: Feliz Parkinson Age: 71 yrs Sex: Male : 1950 Arrival Date: 08/23/2022 Time: 16:40 Bed 11 Private MD: LISSETTE Physician Gatito Huff Historical: - Allergies: 08/23 17:00 No Known Allergies; aa5 - Home Meds: 17:00 None [Active]; aa5 - PMHx: 17:00 None; aa5 - Immunization history:: Last tetanus immunization: up to date < 5 years ago. - Social history:: Smoking status: Patient denies any tobacco usage or history of. Vital Signs: 17:00 BP 125 / 88; Pulse 72; Resp 18 S; Temp 98(TE); Pulse Ox 98% on R/A; Weight 74.84 kg aa5 (R); Height 5 ft. 8 in. (R); 17:10 BP 125 / 88; Pulse 62; Resp 16; Temp 97; Pulse Ox 99% ; ko1 17:00 Body Mass Index 25.09 (74.84 kg, 172.72 cm) aa5 MDM: 17:03 Patient medically screened. [facility] 08/23 17:03 Order name: Eye Tray; Complete Time: 17:07 [facility] 08/23 17:03 Order name: Fluoresene Opth strip; Complete Time: 17:08 [facility] Administered Medications: 17:08 Drug: Tetracaine Ophthalmic Drops 0.5 % 1 drops Route: Ophthalmic; Site: both eyes; ko1 Disposition Summary: 08/23/22 17:14 Discharge Ordered Location: Home [facility] Condition: Stable [facility] Diagnosis - Injury of conjunctiva and corneal abrasion without foreign body [facility] Followup: [facility] - With: Ariel Lerma MD - When: 1 - 2 days - Reason: Recheck today's complaints, Continuance of care, Re-evaluation by your physician Discharge Instructions: - Discharge Summary Sheet [facility] - Corneal Abrasion [facility] Forms: - Medication Reconciliation Form [facility] - Thank You Letter [facility] - Antibiotic Education [facility] - Prescription Opioid Use [facility] Prescriptions: - Erythromycin 5 mg/gram (0.5 %) Ophthalmic Ointment - apply 1 centimeter by OPHTHALMIC route 2-3 times daily for 7 days; 1 unit; [facility] Refills: 0, Product Selection Permitted Signatures: Nicola Valentino PA PA jmm Calderon, Audri, RN RN aa5 Soo Haskins, RN RN ko1
--- NOTE | 2022-08-23 17:14 | ER ---
Nurse's Notes [facility] Name: Feliz Parkinson Age: 71 yrs Sex: Male : 1950 Arrival Date: 08/23/2022 Time: 16:40 Bed 11 Private MD: Diagnosis: Injury of conjunctiva and corneal abrasion without foreign body Presentation: 08/23 17:00 Chief complaint: Patient states: "I think I got some sawdust in my eyes, I was working aa5 on a porch on Tuesday and Tuesday". 17:00 Method Of Arrival: Ambulatory aa5 17:00 Onset of symptoms was August 2022. aa5 17:00 Acuity: RAYNA 4 aa5 17:00 Coronavirus screen: At this time, the client does not indicate any symptoms associated aa5 with coronavirus-19. 17:00 Ebola Screen: Patient denies travel to an Ebola-affected area in the 21 days before aa5 illness onset. Initial Sepsis Screen: Does the patient meet any 2 criteria? No. Patient's initial sepsis screen is negative. Does the patient have a suspected source of infection? No. Patient's initial sepsis screen is negative. Risk Assessment: Do you want to hurt yourself or someone else? Patient reports no desire to harm self or others. Historical: - Allergies: 17:00 No Known Allergies; aa5 - Home Meds: 17:00 None [Active]; aa5 - PMHx: 17:00 None; aa5 - Immunization history:: Last tetanus immunization: up to date < 5 years ago. - Social history:: Smoking status: Patient denies any tobacco usage or history of. Screenin:10 [facility] ED Fall Risk Assessment (Adult) History of falling in the last 3 months, ko1 including since admission No falls in past 3 months (0 pts) Confusion or Disorientation No (0 pts) Intoxicated or Sedated No (0 pts) Impaired Gait No (0 pts) Mobility Assist Device Used No (0 pt) Altered Elimination No (0 pt) Score/Fall Risk Level 0 - 2 = Low Risk Oriented to surroundings, Maintained a safe environment, Educated pt \\T\\ family on fall prevention, incl call for assistance when getting out of bed, Assessed \\T\\ reinforced patient's understanding of fall precautions, Provided non-skid footwear, Hourly rounding (assess needs \\T\\ fall precautionary measures) done, Used ambulatory aids as needed (educated on \\T\\ assisted with), Used gait belt as appropriate. Abuse screen: Denies threats or abuse. Denies injuries from another. Nutritional screening: No deficits noted. Tuberculosis screening: No symptoms or risk factors identified. Assessment: 17:10 General: Appears in no apparent distress. uncomfortable, Behavior is calm, cooperative, ko1 appropriate for age. Pain: Complains of pain in right eye and left eye. Neuro: No deficits noted. Cardiovascular: No deficits noted. Respiratory: No deficits noted. GI: No deficits noted. : No deficits noted. EENT: Reports sawdust in eyes. Derm: No deficits noted. Musculoskeletal: No deficits noted. Injury Description: Foreign body is located right eye and left eye. Vital Signs: 17:00 BP 125 / 88; Pulse 72; Resp 18 S; Temp 98(TE); Pulse Ox 98% on R/A; Weight 74.84 kg aa5 (R); Height 5 ft. 8 in. (R); 17:10 BP 125 / 88; Pulse 62; Resp 16; Temp 97; Pulse Ox 99% ; ko1 17:00 Body Mass Index 25.09 (74.84 kg, 172.72 cm) aa5 ED Course: 16:41 Patient arrived in ED. am2 16:48 Nicola Valentino PA is PHCP. [facility] 16:48 Gatito Huff MD is Attending Physician. [facility] 17:00 Arm band placed on. aa5 17:03 Soo Haskins, RN is Primary Nurse. ko1 17:10 Patient has correct armband on for positive identification. Bed in low position. Call ko1 light in reach. Side rails up X 1. Pulse ox on. NIBP on. 17:10 Assist provider with eye exam of both eyes. Performed by Nicola LANDEROS Patient ko1 tolerated well. Patient did not have IV access during this emergency room visit. 17:11 Triage completed. aa5 17:13 Ariel Lerma MD is Referral Physician. gian Administered Medications: 17:08 Drug: Tetracaine Ophthalmic Drops 0.5 % 1 drops Route: Ophthalmic; Site: both eyes; ko1 Medication: 17:10 VIS not applicable for this client. ko1 Outcome: 17:14 Discharge ordered by . latonya 17:14 Discharged to home ambulatory. ko1 17:14 Condition: stable 17:14 Discharge instructions given to patient, Instructed on discharge instructions, follow up and referral plans. medication usage, Demonstrated understanding of instructions, follow-up care, medications, Prescriptions given X 1. 17:19 Patient left the ED. ko1 Signatures: Nicola Valentino PA PA jmm Calderon, Audri, RN RN saad5 Sofy Valverde Kathy, SOFIE RN ko1
[2022-08-23 18:18] VITALS: O2SAT 99
[2022-08-23 18:24] VITALS: BP 130/74; TEMP 97.4
== END 2022-08-23 17:19 | disposition home or self-care (01) ==
LOC: ER 16:40
DX: S05.02XA Injury of conjunctiva and corneal abrasion without foreign body, left eye, initial encounter (principal); S05.01XA Injury of conjunctiva and corneal abrasion without foreign body, right eye, initial encounter

== ENCOUNTER 2022-11-29 11:44 | Emergency (ER) | payer OTHER ==
--- OUTSIDE RECORDS SUMMARY | 2022-11-29 11:48 | XMS REPORT | Continuity of Care Document ---
:1950 Author Organization [facility] t Address [address] [place] [address] Care Team Providers Name Role Phone ECTOR ROE Attending Clinician Unavailable Benoit Hensley Attending Clinician BENOIT BEAVER Attending Clinician Unavailable ECTOR ROE Admitting Clinician Unavailable Payers Payer Name Policy Type Policy Number Effective Date Expiration Date S ource Problems Condition Condition Condition Status Onset Resolution Last Treating Co mments Source Name Details Category Date Date Treatment Clinician Date No known No known Disease Unive rs active active ity of problems problems [facility] Allergies, Adverse Reactions, Alerts Allergy Allergy Status Severity Reaction(s) Onset Inactive Treating Comm ents Source Name Type Date Date Clinician NO KNOWN Drug Active Univers ALLERGIE Class ity of S [facility] Social History Social Habit Start Date Stop Date Quantity Comments [facility] to [facility] Smoking Status Start Date Stop Date Source Unknown if ever smoked Universit y [facility] Medications Ordered Filled Start Stop Current Ordering Indication Dosage Frequency Signature Comments Components Source Medication Medication Date Date Medication? Clinician (SIG) Name Name ondansetron 2020- No 4mg 4 mg, Univ ers (ZOFRAN-ODT 05-10 Oral, ity of ) 01:15: 00:12 ONCE, 1 [place] disintegrat 00 :00 dose, Fri Med ical ing tablet 05/09/20 at Bran ch 4 mg 1915, Routine NaCl 0.9% 2020- 1000mL at 999 Uni vers (NS) bolus 2-06 02-06 mL/hr, ity of infusion 00:30: 02:56 1,000 mL, Jj as 1,000 mL 00 :00 IV Medical Infusion, Branch ONCE, 1 dose, 05/09/20 at 1830, STAT ondansetron 0 Yes [id number] 4mg Take 1 Univers (ZOFRAN 2-05 tablet by ity of ODT) 4 mg 00:00: mouth [place] disintegrat 00 every 8 Medic al ing tablet (eight) Branch hours as needed for Nausea and Vomiting (N/V). albuterol Yes [id number] 2{puff} Inhale 2 Univers 90 2-05 Puffs ity of mcg/actuati 00:00: every 4 Jj as on inhaler 00 (four) Medical hours as Branch needed for Wheezing or Shortness of Breath. Vital Signs Vital Name Observation Time Observation Value Comments Source Systolic blood 2020-05-10 02:56:00 153 mm[Hg] [facility] Diastolic blood 2020-05-10 02:56:00 63 mm[Hg] Unive [facility] Heart rate 2020-05-10 02:56:00 87 /min [facility] Respiratory rate 2020-05-10 02:56:00 16 /min [facility] Oxygen saturation in 2020-05-10 02:56:00 97 /min [facility] Arterial blood by [facility] Pulse oximetry Branch Body weight 2020-05-10 00:07:00 74.844 kg [facility] Body temperature 2020-05-09 23:44:00 37.06 Khushboo [facility] Systolic blood 2020-05-10 02:56:00 153 mm[Hg] [facility] Diastolic blood 2020-05-10 02:56:00 63 mm[Hg] Unive [facility] Heart rate 2020-05-10 02:56:00 87 /min [facility] Respiratory rate 2020-05-10 02:56:00 16 /min [facility] Oxygen saturation in 2020-05-10 02:56:00 97 /min [facility] Arterial blood by [facility] Pulse oximetry Branch Body weight 2020-05-10 00:07:00 [facility] 2020-05-09 23:44:00 37.06 Khushboo [facility] Procedures Procedure Date / Time Performed Performing Clinician Sourc e BASIC METABOLIC PANEL 2020-05-10 00:19:00 Beniot Beaver [facility] (NA, K, CL, CO2, Medical Branch GLUCOSE, BUN, CREATININE, CA) CBC WITHOUT DIFF 2020-05-10 00:19:00 Benoit Beaver [facility] NOTICE OF PRIVACY 2020-05-09 23:38:29 Doctor Unassigned, No [facility] PRACTICES Name Medical Branch Encounters Start End Encounter Admission Attending Care Care Encounter Source Date/Time Date/Time Type Type Clinicians Facility Department ID 2021-12-06 2021-12-07 [facility] [id number] [facility] 20:39:00 15:10:00 [place] 2020-05-09 2020-05-09 [facility] [id number] [facility] 17:48:00 21:02:00 Benoit Richardson [id number] [facility] [id number] [facility] [id number] [place] [id number] Branch 2020-05-09 2020-05-09 [facility] [id number] 17:48:00 21:02:00 Benoit Richardson [id number] [place] [id number] [place] [address] [id number] 2020-05-09 2020-05-09 Emergency [facility] [place] E[facility] [id number] Univers 17:40:00 17:40:00 BENOIT mejía [facility] Results Test Description Test Time Test Comments Results Result Comments Source BASIC METABOLIC PANEL (NA, K, CL, CO2, GLUCOSE, BUN, 2020-05 00:44:00 CREATININE, CA) Test Item Value Reference Range Interpretation Comme nts NA (test code = 4705313397) 137 mmol/L 135-145 K (test code = 6933968278) 3.2 mmol/L 3.5-5 L CL (test code = 0777444439) 99 mmol/L 98-108 CO2 TOTAL (test code = 0230980215) 26 mmol/L 23-31 AGAP (test code = 8765166763) 2-16 BUN (test code = 3981292964) 9 mg/dL 7-23 GLUCOSE (test code = 7579961402) 93 mg/dL 70-110 CREATININE (test code = 0.64 mg/dL 0.6-1.25 7407836261) CALCIUM (test code = 8960018323) 8.5 mg/dL 8.6-10.6 L eGFR Calculation (Non- mL/min/1.73m2 Irish) (test code = 5110312305) eGFR Calculation ( mL/min/1.73m2 Irish) (test code = 4460787950) YADIEL (test code = YADIEL) Association of Glomerular Filtration Rate (GFR) and Staging of Kidney Disease* + +-------- + ------+| GFR (mL/min/1.73 m2) ?| With Kidney Damage ?| ?Without Kidney Damage+ +-- + +| ?>90 ?| ?Stage one ?| ? Normal ?+ +------- + -------+| ?60-89 ?| ?Stage two ?| ? Decreased GFR ? + +-------- + ------+| ?30-59 ?| ?Stage three ?| ? Stage three ? + +-------- + ------+| ?15-29 ?| ?Stage four ? | ? Stage four ?+ +------- + -------+| ?<15 (or dialysis) ? ?| ?Stage five ? | ? Stage five ?+ +------- + -------+ *Each stage assumes the associated GFR level has been in effect for at least three months. ?Stages 1 to 5, with or without kidney disease, indicate chronic kidney disease. Notes: Determination of stages one and two (with eGFR >59mL/min/1.73 m2) requires estimation of kidney damage for at least three months as defined by structural or functional abnormalities of the kidney, manifested by either:Pathological abnormalities or Markers of kidney damage (including abnormalities in the composition of the blood or urine or abnormalities in imaging tests). Lab Interpretation (test code = Abnormal 74779-9) [facility] WITHOUT [id number] 00:32:00 Test Item Value Reference Range Interpretation Comments WBC (test code = See_Comment [Automated message] The 6690-2) system which ge nerated this result tra nsmitted reference range : 4.20 - 10.70 10*3/?L. The reference range was not used to interpr et this result as normal/abnormal . RBC (test code = See_Comment [Automated message] The 789-8) system which [employer] nerated this result tra nsmitted reference range : 4.26 - 5.52 10*6/?L. T he reference range was not used to interpr et this result as normal/abnormal . HGB (test code = 14.3 g/dL 12.2-16.4 718-7) HCT (test code = 41.9 % 38.4-49.3 4544-3) MCH (test code = 30.2 pg 26.1-32.7 785-6) MCV (test code = 88.4 fL 81.7-95.6 787-2) MCHC (test code = 34.1 g/dL 31.2-35 786-4) PLT (test code = See_Comment [Automated message] The 777-3) system which nerated this result tra nsmitted reference range : 150 - 328 10*3/?L. Th e reference range was not used to interpr et this result as normal/abnormal . MPV (test code = 10.6 fL 9.8-13 91986-1) RDW-CV (test code = 12.1 % 12.1-15.4 788-0) RDW-SD (test code = 39.4 fL 38.5-51.6 80715-0) NRBC x10^3 (test <0.01 See_Comment [Automated message] The code = 9840787036) system [facility] generated this result tra nsmitted reference range : 10*3/?L. The reference r maria isabel was not used to int erpret this result as normal/abnormal . NRBC/100 WBC (test See_Comment [Automat ed message] The code = 1137951211) system wh ich generated this result tra nsmitted reference range : 0.0 - 10.0 /100 WBCs. The reference range was not used to interpr et this result as normal/abnormal . IPF % (test code = 9819618955) [facility]"
[2022-11-29 14:31] VITALS: BP 131/74; TEMP 98.6; O2SAT 100
--- NOTE | 2022-11-30 14:18 | ER ---
Nurse's Notes [facility] Name: Feliz Parkinson Age: 72 yrs Sex: Male : 1950 Arrival Date: 11/29/2022 Time: 11:44 Bed IW10 Private MD: Diagnosis: Presentation: 11/29 12:23 Chief complaint: Patient states: "Last night, I started having right ear pain.". mb9 Coronavirus screen: Vaccine status: Patient reports receiving the 2nd dose of the covid vaccine. Ebola Screen: No symptoms or risks identified at this time. Initial Sepsis Screen: Does the patient meet any 2 criteria? No. Patient's initial sepsis screen is negative. Does the patient have a suspected source of infection? No. Patient's initial sepsis screen is negative. Risk Assessment: Do you want to hurt yourself or someone else? Patient reports no desire to harm self or others. Onset of symptoms was 2022. 12:23 Method Of Arrival: Ambulatory 9 12:23 Acuity: RAYNA 4 mb9 Triage Assessment: 12:24 General: Appears in no apparent distress. Behavior is calm, cooperative. Pain: mb9 Complains of pain in right ear Pain does not radiate. Quality of pain is described as throbbing. EENT: Reports pain in right ear. Neuro: Quiles Agitation-Sedation Scale (RASS): 0 - Alert and Calm Level of Consciousness is awake, alert, obeys commands, Oriented to person, place, time, situation, Appropriate for age. Cardiovascular: Patient's skin is warm and dry. Respiratory: Airway is patent Respiratory effort is even, unlabored, Respiratory pattern is regular, symmetrical. Derm: Skin is pink, warm \\T\\ dry. Musculoskeletal: Range of motion: intact in all extremities. Historical: - Allergies: 12:24 No Known Allergies; mb9 - Home Meds: 12:24 None [Active]; mb9 - PMHx: 12:24 None; mb9 - PSHx: 12:24 Cholecystectomy; mb9 - Immunization history:: Adult Immunizations up to date. - Social history:: Smoking status: Patient denies any tobacco usage or history of. Assessment: 12:25 Reassessment: see triage assessment. mb9 Vital Signs: 12:23 BP 131 / 74; Pulse 71; Resp 18; Temp 98.6; Pulse Ox 100% on R/A; Weight 68.04 kg; mb9 Height 5 ft. 9 in. ; Pain 3/10; 12:23 Body Mass Index 22.15 (68.04 kg, 175.26 cm) mb9 12:23 Pain Scale: Adult mb9 ED Course: 11:47 Patient arrived in ED. mg5 12:24 Triage completed. mb9 12:24 Arm band placed on. mb9 12:34 Michael Tovar is Attending Physician. ci Administered Medications: No medications were administered Outcome: 14:18 Patient left the ED. iw Signatures: Елена Estrada, RN RN Vonda Chau RN RN Radha Webb 5 Michael Tovar ci
--- NOTE | 2022-11-30 14:18 | EDPHYS ---
Physician Documentation [facility] Name: Feliz Parkinson Age: 72 yrs Sex: Male : 1950 Arrival Date: 11/29/2022 Time: 11:44 Bed IW10 Private MD: ED Physician Michael Tovar HPI: 11/29 12:34 This 72 yrs old Male presents to ER via Ambulatory with complaints of Ear Pain.ci Historical: - Allergies: 12:24 No Known Allergies; mb9 - Home Meds: 12:24 None [Active]; mb9 - PMHx: 12:24 None; mb9 - PSHx: 12:24 Cholecystectomy; mb9 - Immunization history:: Adult Immunizations up to date. - Social history:: Smoking status: Patient denies any tobacco usage or history of. Vital Signs: 12:23 BP 131 / 74; Pulse 71; Resp 18; Temp 98.6; Pulse Ox 100% on R/A; Weight 68.04 kg; mb9 Height 5 ft. 9 in. ; Pain 3/10; 12:23 Body Mass Index 22.15 (68.04 kg, 175.26 cm) mb9 12:23 Pain Scale: Adult mb9 MDM: 12:34 Patient medically screened. ci 14:05 Patient medically screened. ci Administered Medications: No medications were administered Disposition Summary: 11/29/22 14:05 Eloped Disposition: before being seen by provider ci Reason: (see nurse's notes) ci Signatures: Vonda Wall RN RN mb9 Michael Tovar ci
== END 2022-11-29 14:18 | disposition left against medical advice (07) ==
LOC: ER 11:44
DX: Z53.21 Procedure and treatment not carried out due to patient leaving prior to being seen by health care provider (principal)
CPT/HCPCS: 99281

== ENCOUNTER 2023-01-22 07:53 | Emergency (ER) | payer OTHER ==
--- OUTSIDE RECORDS SUMMARY | 2023-01-22 07:59 | XMS REPORT | Continuity of Care Document ---
:1950 Author Organization [facility] t Address [address] [place] [address] [place] [id number] Care Team Providers Name Role Phone PCP, PATIENT DOES NOT HAVE A Primary Care Physician Unavaila MARC Benson Attending Clinician Unavailable SYDNEE PINEDA Attending Clinician Unavailable Marc Hernandez PA-C Attending Clinician Leland LIGHT Attending Clinician Unavailable Leland Phipps Attending Clinician ECTOR ROE Attending Clinician Unavailable Jasmeet Hensley Attending Clinician JASMEET WALLACE Attending Clinician Unavailable ECTOR ROE Admitting Clinician Unavailable Payers Payer Name Policy Type Policy Number Effective Date Expiration Date Gerald mendez LINDA/RIDDHI [id number] 2022 MEDICARE ADVANTAGE 00:00:00 Problems Condition Condition Condition Status Onset Resolution Last Treating Co mments Source Name Details Category Date Date Treatment Clinician Date No known No known Disease Unive rs active active ity of problems problems [facility] Allergies, Adverse Reactions, Alerts Allergy Allergy Status Severity Reaction(s) Onset Inactive Treating Comm ents Source Name Type Date Date Clinician NO KNOWN Drug Active Univers ALLERGIE Class ity of [facility] Social History Social Habit Start Date Stop Date Quantity Comments Source Gender identity [facility] Sexual orientation Univer sity [facility] Exposure to Yes [facility] SARS-CoV-2 (event) Medica l Branch Sex Assigned At [birth year] [facility] 00:00:00 00:00:00 Medical Branch Smoking Status Start Date Stop Date Source Tobacco smoking consumption [facility] Medical unknown Branch Medications Ordered Filled Start Stop Current Ordering Indication Dosage Frequency Signature Comments Components Source Medication Medication Date Date Medication? Clinician (SIG) Name Name fluticasone Yes [id number] 1{spray Use 1 Univers propionate 8-31 } [place] in ity o f 50 00:00: each [place] mcg/actuati 00 nostril in Sc dical on nasal the Branch spray morning. fluticasone Yes [id number] 1{spray Use 1 Univers propionate 8-31 } [place] in ity o f 50 00:00: each [place] mcg/actuati 00 nostril in Me dical on nasal the Branch spray morning. naproxen 2022- No 500mg 500 mg, [facility] ers (NAPROSYN) 11-29 Oral, ity of tablet 500 21:15: 20:15 ONCE, 1 Jj as mg 00 :00 dose, On Medical Mon Branch 11/29/22 at 1615, Routine naproxen Yes [id number] 500mg Take 1 Univers (NAPROSYN) 11-29 tablet by ity of 500 mg 00:00: mouth in [place] tablet the Medical morning Branch and 1 tablet in the evening. Take with meals. naproxen Yes [id number] 500mg Take 1 Univers (NAPROSYN) 11-29 tablet by ity of 500 mg 00:00: mouth in [place] tablet the Medical morning Branch and 1 tablet in the evening. Take with meals. naproxen Yes [id number] 500mg Take 1 Univers (NAPROSYN) 11-29 tablet by ity of 500 mg 00:00: mouth in [place] tablet the Medical morning Branch and 1 tablet in the evening. Take with meals. ondansetron 2020- No 4mg 4 mg, [facility] ers (ZOFRAN-ODT 05-10- Oral, ity of ) 01:15: 00:12 ONCE, 1 [place] disintegrat 00 :00 dose, Fri Med ical ing tablet 05/09/20 at Bran ch 4 mg 1915, Routine NaCl 0.9% 2020- No 1000mL at 999 Uni vers (NS) bolus 2-06 02-06 mL/hr, ity of infusion 00:30: 02:56 1,000 mL, Jj as 1,000 mL 00 :00 IV Medical Infusion, Branch ONCE, 1 dose, 05/09/20 at 1830, STAT ondansetron 2020-0 Yes [id number] 4mg Take 1 Univers (ZOFRAN 2-05 tablet by ity of ODT) 4 mg 00:00: mouth [place] disintegrat 00 every 8 Medic al ing tablet (eight) Branch hours as needed for Nausea and Vomiting (N/V). albuterol 2020-0 Yes [id number] 2{puff} Inhale 2 Univers 90 2-05 Puffs ity of mcg/actuati 00:00: every 4 Jj as on inhaler 00 (four) Medical hours as Branch needed for Wheezing or Shortness of Breath. ondansetron 2020-0 Yes [id number] 4mg Take 1 Univers (ZOFRAN 2-05 tablet by ity of ODT) 4 mg 00:00: mouth [place] disintegrat 00 every 8 Medic al ing tablet (eight) Branch hours as needed for Nausea and Vomiting (N/V). albuterol 2020-0 Yes [id number] 2{puff} Inhale 2 Univers 90 2-05 Puffs ity of mcg/actuati 00:00: every 4 Jj as on inhaler 00 (four) Medical hours as Branch needed for Wheezing or Shortness of Breath. ondansetron 2020-0 Yes [id number] 4mg Take 1 Univers (ZOFRAN 2-05 tablet by ity of ODT) 4 mg 00:00: mouth [place] disintegrat 00 every 8 Medic al ing tablet (eight) Branch hours as needed for Nausea and Vomiting (N/V). albuterol 2020-0 Yes [id number] 2{puff} Inhale 2 Univers 90 2-05 Puffs ity of mcg/actuati 00:00: every 4 Jj as on inhaler 00 (four) Medical hours as Branch needed for Wheezing or Shortness of Breath. ondansetron 2020-0 Yes [id number] 4mg Take 1 Univers (ZOFRAN 2-05 tablet by ity of ODT) 4 mg 00:00: mouth [place] disintegrat 00 every 8 Medic al ing tablet (eight) Branch hours as needed for Nausea and Vomiting (N/V). albuterol Yes [id number] 2{puff} Inhale 2 Univers 90 2-05 Puffs ity of mcg/actuati 00:00: every 4 Jj as on inhaler 00 (four) Medical hours as Branch needed for Wheezing or Shortness of Breath. Vital Signs Vital Name Observation Time Observation Value Comments Source Body height 2022-12-02 19:09:00 174 cm [facility] Body weight 2022-12-02 19:09:00 75.524 kg [facility] BMI 2022-12-02 19:09:00 24.95 kg/m2 [facility] Systolic blood 2022-11-29 18:59:00 154 mm[Hg] Univer sity of [facility] Diastolic blood 2022-11-29 18:59:00 74 mm[Hg] Unive rsity of [facility] Heart rate 2022-11-29 18:59:00 69 /min [facility] Body temperature 2022-11-29 18:59:00 37 [facility] [place] Respiratory rate 2022-11-29 18:59:00 20 /min [facility] [place] Body weight 2022-11-29 18:59:00 74.844 kg [facility] Oxygen saturation in 2022-11-29 18:59:00 99 /min University of Arterial blood by [facility] Pulse oximetry Branch Systolic blood 2020-05-10 02:56:00 153 mm[Hg] Univer sity of [facility] Diastolic blood 2020-05-10 02:56:00 63 mm[Hg] Unive rsity of [facility] Heart rate 2020-05-10 02:56:00 87 /min [facility] Respiratory rate 2020-05-10 02:56:00 16 /min [facility] [place] Oxygen saturation in 2020-05-10 02:56:00 97 /min University of Arterial blood by [facility] Pulse oximetry Branch Body weight 2020-05-10 00:07:00 74.844 kg [facility] Body temperature 2020-05-09 23:44:[address] [facility] [place] Systolic blood 2020-05-10 02:56:00 153 mm[Hg] Univer sity of pressure [facility] Diastolic blood 2020-05-10 02:56:00 63 mm[Hg] Unive rsity of pressure [facility] Heart rate 2020-05-10 02:56:00 87 /min [facility] Respiratory rate 2020-05-10 02:56:00 16 /min [facility] Oxygen saturation in 2020-05-10 02:56:00 97 /min [facility] Arterial blood by [facility] Pulse oximetry [place] Body weight 2020-05-10 00:07:00 74.844 kg [facility] Body temperature 2020-05-09 23:44:00 37.06 Khushboo [facility] Procedures Procedure Date / Time Performed Performing Clinician [facility] e CONSENT/REFUSAL FOR 2022-11-29 18:54:35 Doctor Unassigned, No Un [facility] DIAGNOSIS AND Name Medical [place] TREATMENT BASIC METABOLIC PANEL 2020-05-10 00:19:00 Jasmeet Wallace [facility] (NA, K, CL, CO2, Medical Branch GLUCOSE, BUN, CREATININE, CA) CBC WITHOUT DIFF 2020-05-10 00:19:00 Jasmeet Wallace [facility] NOTICE OF PRIVACY 2020-05-09 23:38:29 Doctor Unassigned, No [facility] PRACTICES Name [facility] Encounters Start End Encounter Admission Attending Care Care Encounter Source Date/Time Date/Time Type Type Clinicians Facility Department ID 2023-01-28 2023-01-28 Outpatient [facility] [id number] Univers 12:15:00 12:15:00 SYDNEE [facility] [place] 2023-01-18 2023-01-18 Outpatient BARB DAY [id number] Hussein 09:41:31 09:41:31 [id number] F Tani 2022-12-02 2022-12-02 Outpatient R [facility] [id number] Univers 14:30:00 14:57:57 [facility] 2022-12-02 2022-12-02 Office CALLIE Hernandez [id number] Univers 14:30:00 14:57:57 Visit Marc Gann [id number] it y [facility] [id number] [facility] [id number] [facility] BLDG. 144 Branch 2022-11-29 2022-11-29 Emergency X Leland LIGHT [facility] ERT [id number] Univers 14:01:00 15:28:00 ity [facility] 2022-11-29 2022-11-29 Emergency Leland Light [facility] [id number] Univers 14:01:00 15:28:00 Delilah ROCHE [id number] i ty of [place] [id number] [facility] [id number] [address] 2021-12-06 2021-12-07 Inpatient JYOTHI, [facility] [id number] [facility] 20:39:00 15:10:00 VINCENTIA 2020-05-09 2020-05-09 Emergency [facility] [id number] Univers 17:48:00 21:02:00 Jasmeet Roche [id number] i ty of [place] 4.2.7.2.686 [facility] [id number] [address] 2020-05-09 2020-05-09 [facility] [id number] 17:48:00 21:02:00 Jasmeet Roche [id number] [place] [id number] [place] [address] [id number] [facility] 2020-05-09 2020-05-09 [facility] [id number] Univers 17:40:00 17:40:00 JASMEET mejía [facility] Results Test Description Test Time Test Comments Results Result Comments Source BASIC METABOLIC PANEL (NA, K, CL, CO2, GLUCOSE, BUN, 2020-05 00:44:00 CREATININE, CA) Test Item Value Reference Range Interpretation Comme nts NA (test code = 8109801023) 137 mmol/L 135-145 K (test code = 3051744643) 3.2 mmol/L 3.5-5 L CL (test code = 3007499712) 99 mmol/L 98-108 CO2 TOTAL (test code = 7747540208) 26 mmol/L 23-31 AGAP (test code = 5387216034) 2-16 BUN (test code = 3209521684) 9 mg/dL 7-23 GLUCOSE (test code = 5981885969) 93 mg/dL 70-110 CREATININE (test code = 0.64 mg/dL 0.6-1.25 8595063183) CALCIUM (test code = 7928561858) 8.5 mg/dL 8.6-10.6 L eGFR Calculation (Non- mL/min/1.73m2 [place]) (test code = 2019610166) eGFR Calculation ( mL/min/1.73m2 [place]) (test code = 6423875931) YADIEL (test code = YADIEL) Association of [...] tests). Lab Interpretation (test code = Abnormal 22945-6) [facility] WITHOUT [id number] 00:32:00 Test Item Value Reference Range Interpretation Comments WBC (test code = See_Comment [Automated message] The 6690-2) system which [employer] nerated this result tra nsmitted reference range : 4.20 - 10.70 10*3/?L. The reference range was not used to interpr et this result as normal/abnormal . RBC (test code = See_Comment [Automated message] The 789-8) system which [employer] nerated this result tra nsmitted reference range [...] See_Comment [Automated message] The 777-3) system which [employer] nerated this result tra nsmitted reference range : 150 - 328 10*3/?L. Th e reference range was not used to interpr et this result as normal/abnormal . MPV (test code = 10.6 fL 9.8-13 00843-1) RDW-CV (test code = 12.1 % 12.1-15.4 788-0) RDW-SD (test code = 39.4 fL 38.5-51.6 04745-6) NRBC x10^3 (test <0.01 See_Comment [Automated message] The code = 6359156737) system [facility] generated this result tra nsmitted reference range : 10*3/?L. The reference r maria isabel was not used to int erpret this result as normal/abnormal . NRBC/100 WBC (test See_Comment [Automat ed message] The code = 7328204774) system [facility] generated this result tra nsmitted reference range : 0.0 - 10.0 /100 WBCs. The reference range was not used to interpr et this result as normal/abnormal . IPF % (test code = 3521343099) [facility]"
[2023-01-22 08:35] LABS: Absolute Lymphocytes (CBC) 1.5 K/uL (0.7-4.9); Hematocrit 44.4 % (39.6-49.0); Lymphocytes % 33.7 % (15.3-44.8); MCV 92.9 fL (80-100); MPV 8.4 fL (7.6-11.3); Platelets 214 thou/uL (152-406); RBC Red Blood Cell Count 4.78 M/uL (4.33-5.43)
[2023-01-22 08:57] LABS: Potassium 3.7 mEq/L (3.5-5.1); Troponin High Sensitivity 5.8 pg/mL (<58.9)
[2023-01-22 09:38] LABS: Blood Morphology Comment NOT SEEN (NOT SEEN); Platelet Estimate ADEQ
--- NOTE | 2023-01-22 09:41 | ER ---
Nurse's Notes [facility] Name: Feliz Parkinson Age: 72 yrs Sex: Male : 1950 Arrival Date: 01/22/2023 Time: 07:53 Bed 6 Private MD: Diagnosis: Atypical pneumonia Presentation: 01/22 08:09 Chief complaint: Patient states: R shoulder pain since . Radiates into R chest ll1 with deep breathing. No fever. Slight cough/congestion. Very tender with palpation to R shoulder blade area. No falls/trauma. Coronavirus screen: Client denies travel out of the [place] in the last 14 days. congestion, cough unrelated to allergies, Client presents with at least one sign or symptom that may indicate coronavirus-19. Standard/surgical mask placed on the client. Ebola Screen: Patient denies travel to an Ebola-affected area in the 21 days before illness onset. Initial Sepsis Screen: Does the patient meet any 2 criteria? No. Patient's initial sepsis screen is negative. Does the patient have a suspected source of infection? No. Patient's initial sepsis screen is negative. Risk Assessment: Do you want to hurt yourself or someone else? Patient reports no desire to harm self or others. Onset of symptoms was January 20, 2023. 08:09 Method Of Arrival: Ambulatory ll1 08:09 Acuity: RAYNA 3 ll1 Triage Assessment: 08:12 General: Appears uncomfortable, Behavior is calm, cooperative, appropriate for age. ll1 Pain: Complains of pain in R shoulder blade Pain currently is 5 out of 10 on a pain scale. Quality of pain is described as aching. Respiratory: Reports pain with cough pain with respiration. Musculoskeletal: Circulation, motion, and sensation intact. Capillary refill < 3 seconds, Tenderness present in R shoulder blade Reports pain in R shoulder blade area. Historical: - Allergies: 08:09 No Known Allergies; ll1 - PMHx: 08:09 None; ll1 - PSHx: 08:09 Cholecystectomy; ll1 - Immunization history:: Adult Immunizations up to date. - Social history:: Smoking status: Patient denies any tobacco usage or history of. Screenin:29 [facility] ED Fall Risk Assessment (Adult) Score/Fall Risk Level 0 - 2 = Low Risk hb Oriented to surroundings, Maintained a safe environment. Abuse screen: Denies threats or abuse. Denies injuries from another. Nutritional screening: No deficits noted. Tuberculosis screening: No symptoms or risk factors identified. Assessment: 08:29 General: Appears in no apparent distress. uncomfortable, Behavior is calm, cooperative. hb Pain: Pain currently is 6 out of 10 on a pain scale. Neuro: Level of Consciousness is awake, alert, obeys commands, Oriented to person, place, time, situation. Cardiovascular: Patient's skin is warm and dry. Respiratory: Respiratory effort is even, unlabored, Respiratory pattern is regular, symmetrical. GI: No signs and/or symptoms were reported involving the gastrointestinal system. : No signs and/or symptoms were reported regarding the genitourinary system. EENT: No signs and/or symptoms were reported regarding the EENT system. Derm: Skin is pink, warm \T\ dry. Musculoskeletal: Reports right shoulder pain that radiates to right chest and right upper back. 09:15 Reassessment: Patient appears in no apparent distress at this time. Patient and/or hb family updated on plan of care and expected duration. Pain level reassessed. Patient is alert, oriented x 3, equal unlabored respirations, skin warm/dry/pink. 10:22 Reassessment: Patient appears in no apparent distress at this time. Patient and/or ld1 family updated on plan of care and expected duration. Pain level reassessed. Patient is alert, oriented x 3, equal unlabored respirations, skin warm/dry/pink. Vital Signs: 08:09 BP 144 / 80; Pulse 60; Resp 17; Temp 97.7; Pulse Ox 99% ; Weight 72.57 kg; Height 5 ft. ll1 9 in. ; Pain 6/10; 09:15 BP 141 / 71; Pulse 57; Resp 14; Pulse Ox 98% on R/A; hb 10:22 BP 144 / 86; Pulse 59; Resp 18; Pulse Ox 99% on R/A; ld1 08:09 Body Mass Index 23.63 (72.57 kg, 175.26 cm) ll1 08:09 Pain Scale: Adult ll1 ED Course: 08:01 Patient arrived in ED. ts1 08:01 Sulma Lynn [facility]NP [facility] jh7 08:01 Jasmeet Park MD is Attending Physician. 7 08:03 Arm band placed on Patient placed in an exam room, on a stretcher. ll1 08:06 Alice Villareal, RN is Primary Nurse. ld1 08:12 Triage completed. ll1 08:27 Inserted saline lock: 20 gauge in right forearm, using aseptic technique. Blood hb collected. 08:29 Patient has correct armband on for positive identification. Provided Education on: hb tests, wait times. 08:29 Troponin HS Sent. hb 08:29 CBC with Diff Sent. hb 08:29 Basic Metabolic Panel Sent. hb 08:29 No provider procedures requiring assistance completed. hb 08:43 XRAY Chest (1 view) In Process Unspecified. EDMS 10:22 IV discontinued, intact, bleeding controlled, No redness/swelling at site. ld1 Administered Medications: 08:29 Drug: Aspirin PO Chewable Tablet 324 mg PO once; 81 mg tablets x 4 Route: PO; hb 09:45 Drug: fentaNYL (PF) IVP 25 mcg IVP once Route: IVP; Site: right antecubital; ld1 Medication: 08:29 VIS not applicable for this client. hb Outcome: 09:40 Discharge ordered by . 7 10:22 Discharged to home ambulatory, ld1 10:22 Condition: stable 10:22 Discharge instructions given to patient, Instructed on discharge instructions, follow up and referral plans. medication usage, Demonstrated understanding of instructions, follow-up care, medications, Prescriptions given X 4, 10:22 Patient left the ED. ld1 Signatures: Dispatcher [employer] EDMS Sue Herzog RN RN hb Lewis, Lynsay, RN RN 1 Alice Villareal, RN RN ld1 Sulma Lynn FNP [employer] [facility] Clara Mendenhall, MAYNOR PAS ts1
--- NOTE | 2023-01-22 09:41 | EDPHYS ---
Physician Documentation [facility] Name: Feliz Parkinson Age: 72 yrs Sex: Male : 1950 Arrival Date: 01/22/2023 Time: 07:53 Bed 6 Private MD: ED Physician Jasmeet Park HPI: 01/22 08:09 This 72 yrs old Male presents to ER via Unassigned with complaints of Shoulder jh7 Pain. 08:09 The patient or guardian complains of pain, that is acute. Patient complains of right jh7 shoulder pain since . He states that the pain radiates to the front of the right side of his chest all the way to his back. He reports that pain is reproducible by movement of his shoulder and breathing. Also reports a mild cough and congestion. Denies any fever or shortness of breath. History of cholecystectomy. Patient denies any medical problems and states that he " knows its not his heart".. Historical: - Allergies: 08:09 No Known Allergies; ll1 - PMHx: 08:09 None; ll1 - PSHx: 08:09 Cholecystectomy; ll1 - Immunization history:: Adult Immunizations up to date. - Social history:: Smoking status: Patient denies any tobacco usage or history of. ROS: 08:09 Constitutional: Negative for fever, chills, and weight loss, Eyes: Negative for injury, jh7 pain, redness, and discharge, Neck: Negative for injury, pain, and swelling, Cardiovascular: Negative for chest pain, palpitations, and edema, Respiratory: Negative for shortness of breath, cough, wheezing, and pleuritic chest pain, Abdomen/GI: Negative for abdominal pain, nausea, vomiting, diarrhea, and constipation, Back: Negative for injury and pain, MS/Extremity: Negative for injury and deformity, Skin: Negative for injury, rash, and discoloration, Neuro: Negative for headache, weakness, numbness, tingling, and seizure, 08:09 MS/extremity: Positive for pain, of the right shoulder, 08:09 All other systems are negative, Exam: 08:09 Constitutional: This is a well developed, well nourished patient who is awake, alert, jh7 and in no acute distress. Head/Face: Normocephalic, atraumatic. Cardiovascular: Regular rate and rhythm with a normal S1 and S2. No gallops, murmurs, or rubs. Normal PMI, no JVD. No pulse deficits. Respiratory: Lungs have equal breath sounds bilaterally, clear to auscultation and percussion. No rales, rhonchi or wheezes noted. No increased work of breathing, no retractions or nasal flaring. Abdomen/GI: Soft, non-tender, with normal bowel sounds. No distension or tympany. No guarding or rebound. No evidence of tenderness throughout. Back: No spinal tenderness. No costovertebral tenderness. Full range of motion. Skin: Warm, dry with normal turgor. Normal color with no rashes, no lesions, and no evidence of cellulitis. Neuro: Awake and alert, GCS 15, oriented to person, place, time, and situation. Sensory grossly intact. Normal gait. 08:09 Musculoskeletal/extremity: Extremities: noted in the Right shoulder: decreased ROM, pain, ROM: limited active range of motion due to pain, in the Right shoulder, Circulation is intact in all extremities. Perfusion: the extremity is normally perfused throughout, pink, warm, with brisk capillary refill, Sensation intact. Vital Signs: 08:09 BP 144 / 80; Pulse 60; Resp 17; Temp 97.7; Pulse Ox 99% ; Weight 72.57 kg; Height 5 ft. ll1 9 in. ; Pain 6/10; 09:15 BP 141 / 71; Pulse 57; Resp 14; Pulse Ox 98% on R/A; hb 10:22 BP 144 / 86; Pulse 59; Resp 18; Pulse Ox 99% on R/A; ld1 08:09 Body Mass Index 23.63 (72.57 kg, 175.26 cm) ll1 08:09 Pain Scale: Adult ll1 MDM: 08:01 Patient medically screened. [facility] 09:40 Differential diagnosis: Costochondritis, bronchitis, pneumonia, unstable angina, jh7 shoulder strain, arthritis. Data reviewed: vital signs, nurses notes, lab test result(s), EKG, radiologic studies, plain films. I considered the following discharge prescriptions or medication management in the emergency department Medications were administered in the Emergency Department. See MAR. Independent interpretation of the following test(s) in the Emergency Department EKG: See my EKG interpretation above. Scoring Tools HEART Score: Total Score = 3. Counseling: I had a detailed discussion with the patient and/or guardian regarding the historical points, exam findings, and any diagnostic results supporting the discharge/admit diagnosis, to return to the emergency department if symptoms worsen or persist or if there are any questions or concerns that arise at home. Response to treatment: the patient's symptoms have mildly improved after treatment. Special discussion: Patient reported a history of bronchitis and pneumonia. He reports that he had had sinus symptoms for 1 week and then developed a bad cough 2 days ago. We will treat for atypical pneumonia based on patient presentation and history. He was advised to return to the ER with any new concerning symptoms.. 01/22 08:09 Order name: Basic Metabolic Panel; Complete Time: 08:59 7 01/22 08:09 Order name: CBC with Diff; Complete Time: 09:39 7 01/22 08:09 Order name: Troponin HS; Complete Time: 08:59 7 01/22 09:38 Order name: Manual Differential; Complete Time: 09:39 EDMS 01/22 08:09 Order name: XRAY Chest (1 view); Complete Time: 09:52 7 01/22 08:09 Order name: EKG; Complete Time: 08:10 7 01/22 08:09 Order name: Cardiac monitoring; Complete Time: 08:29 7 01/22 08:09 Order name: EKG - Nurse/Tech; Complete Time: 08:29 7 01/22 08:09 Order name: IV Saline Lock; Complete Time: 08:29 7 01/22 08:09 Order name: Labs collected and sent; Complete Time: 08:29 [facility] 01/22 08:09 Order name: O2 Per Protocol; Complete Time: : [facility] 01/22 08:09 Order name: O2 Sat Monitoring; Complete Time: : 7 EC:28 Rate is 62 beats/min. Rhythm is regular. QRS [place] is Normal. MA interval is normal at jh7 164 msec. QRS interval is normal at 108 msec. QT interval is normal at 418 msec. No Q waves. T waves are Normal. Clinical impression: Normal sinus rhythm with right bundle branch block. Administered Medications: 08:29 Drug: Aspirin PO Chewable Tablet 324 mg PO once; 81 mg tablets x 4 Route: PO; hb 09:45 Drug: fentaNYL (PF) IVP 25 mcg IVP once Route: IVP; Site: right antecubital; ld1 Disposition: 11:50 Co-signature as Attending Physician, Jasmeet Park MD I agree with the assessment and kdr plan of care. Disposition Summary: 01/22/23 09:40 Discharge Ordered Notes: Location: Home [facility] Problem: new [facility] Symptoms: have improved [facility] Condition: Stable [facility] Diagnosis - Atypical pneumonia [facility] Followup: [facility] - With: Private Physician - When: 2 - 3 days - Reason: Recheck today's complaints Discharge Instructions: - Discharge Summary Sheet [facility] - Community-Acquired Pneumonia, Adult [facility] - Pneumonitis [facility] Forms: - Medication Reconciliation Form [facility] - Thank You Letter [facility] - Antibiotic Education [facility] - Patient Portal Instructions [facility] - Leadership Thank You Letter [facility] Prescriptions: - albuterol sulfate 90 mcg/actuation Inhalation HFA Aerosol Inhaler - inhale 1 puff INHALATION route every 4-6 hours As needed; 1 Each; Refills: 0, [facility] Product Selection Permitted - Tessalon Perles 100 mg Oral Capsule - take 1 capsule ORAL route every 8 hours As needed; 15 capsule; Refills: 0, [facility] Product Selection Permitted - Doxycycline Hyclate 100 mg Oral tablet - take 1 tablet ORAL route every 12 hours for 7 days; 14 tablet; Refills: 0, [facility] Product Selection Permitted - Medrol (José Antonio) 4 mg Oral Tablets, Dose Pack - take 1 tablet ORAL route as directed - follow package instructions; 1 packet; [facility] Refills: 0, Product Selection Permitted Signatures: Dispatcher [employer] EDJasmeet Fernandes MD MD [facility] Sue Herzog RN RN Eleazar Easley RN RN ll1 Alice Villareal RN RN ld1 Sulma Lynn FNP [employer] [facility] Corrections: (The following items were deleted from the chart) 08:12 08:09 Patient complains of right shoulder pain since . He states that the pain jh7 radiates to the front of the right side of his chest all the way to his back. He reports that pain is reproducible by movement of his shoulder and breathing. Also reports a mild cough and congestion. Denies any fever or shortness of breath.. [facility]
--- NOTE | 2023-01-22 09:51 | RAD REPORT ---
[facility] 8:41 am CLINICAL HISTORY: CHEST PAIN COMPARISON: Chest Single View dated 09/13/2020; Chest Pa And Lat (2 Views) dated 05/15/2016; CHEST SIN GLE VIEW dated 07/29/2012; CHEST PA AND LAT 2 VIEW dated 10/18/2010 TECHNIQUE: Portable AP view of the chest. FINDINGS: The lungs show no focal consolidation. Central interstitial prominence. No pneumothorax o r effusion. The cardiomediastinal contours are unremarkable. IMPRESSION: Central interstitial prominence may reflect mild central congestion. No focal consolidat ion.
[2023-01-22] MEDS ORDERED: FENTANYL CITR 100 MCG/2 ML ONE (09:56)
[2023-01-22 10:27] VITALS: TEMP 97.7
[2023-01-22 10:30] VITALS: BP 144/86; O2SAT 99
--- NOTE | 2023-01-23 13:51 | EKG ---
Test Date: 2023-01-22 Test Time: 08:28:20 Janitor Custodian: Meka SI MEASUREMENT RESULTS: Intervals: Rate: 62 CT: 164 QRSD: 108 QT: 418 QTc: 424 [place]: P: 27 CT: 164 QRS: -27 T: 20 INTERPRETIVE STATEMENTS: Normal sinus rhythm Right bundle branch block Cannot rule out Inferior infarct, age undetermined Abnormal ECG No previous ECG available for comparison Electronically Signed On 01-23-23 13:50:13 CDT by Cuco Jenkins
== END 2023-01-22 10:22 | disposition home or self-care (01) ==
LOC: ER 07:53
DX: J18.9 Pneumonia, unspecified organism (principal); M25.511 Pain in right shoulder
CPT/HCPCS: 93005; 85025; 80048; 36415; 84484; 71045; 96374; 99284; J3010

== ENCOUNTER → 2023-05-16 | Emergency (ER) | payer OTHER ==
[~2023-05-16] MED LIST: ACETAMINOPHEN 500 MG TAB ONE; AZITHROMYCIN 250 MG TAB ONE; BENZONATATE 100 MG CAP PO ONE; GUAIFENESIN/DM 5 ML UCUP ONE; IBUPROFEN 400 MG TAB ONE; ONDANSETRON 4 MG (ODT) TAB ONE
--- OUTSIDE RECORDS SUMMARY | 2023-05-16 20:48 | XMS REPORT | Continuity of Care Document ---
Author Name Unknown Address [address] [place] [address] [facility] thconnect Address [address] [place] [address] Care Team Providers Care Community Relations Specialist Name Role Phone SYSTEM, PCP NOT IN Primary Care Physician Unavai MARC Fry Attending Clinician Unavailable SYDNEE PINEDA Attending Clinician Unavailable Marc Hernandez PA-C Attending Clinician Leland LIGHT Attending Clinician Unavailable Leland Phipps Attending Clinician [phone] ECTOR ROE Attending Clinician Un available Jasmeet Hensley Attending Clinician [phone] JASMEET WALLACE Attending Clinician Unavailable ECTOR ROE Admitting Clinician Un available Payers Payer Name Policy Type Policy Number Effective Date Expirati on Date Source [employer] MED[employer]ARE [employer]VANTAGE [id number] 2022 00:00:00 Problems Condition Name Condition Details Condition Category Status Onset Date Resolution Date Last Treatment Date Treating Clinician Comments Source No known active problems No known active problems Disease [facility] Allergies, Adverse Reactions, Alerts Allergy Name Allergy Type Status Severity Reaction(s) Onset Date Inactive Date Treating Clinician Comments Source NO KNOWN ALLERGIE S Drug Class Active [facility] Social History Social Habit Start Date Stop Date Quantity Comments Source Gender identity [facility] Exposure to SARS-CoV-2 (event) Yes [facility] Sex Assigned At 1950 00:00:00 1950 00:00:[address] [facility] Smoking Status Start Date Stop Date Source Tobacco smoking consumption unknown [facility] Medications Ordered Medication Name Filled Medication Name Start Date Stop Date Current Medication? Ordering Clinician Indication Dosage Frequency Signature (SIG) Comments Components Source fluticasone propionate 50 mcg/actuati on nasal spray 12-02 00:00: 00 Yes [id number] 1{spray } Use 1 [place] in each nostril in the morning. [facility] fluticasone propionate 50 mcg/actuati on nasal spray 12-02 00:00: 00 Yes [id number] 1{spray } Use 1 [place] in each nostril in the morning. [facility] naproxen (NAPROSYN) tablet 500 mg 11-29 21:15: 00 11-29 20:15 :00 No 500mg 500 mg, Oral, ONCE, 1 dose, On Tue11/29/22 at 1615, Routine [facility] naproxen (NAPROSYN) 500 mg tablet 11-29 00:00: 00 Yes [id number] 500mg Take 1 tablet by mouth in the morning and 1 tablet in the evening. Take with meals. [facility] naproxen (NAPROSYN) 500 mg tablet 11-29 00:00: 00 Yes [id number] 500mg Take 1 tablet by mouth in the morning and 1 tablet in the evening. Take with meals. [facility] naproxen (NAPROSYN) 500 mg tablet 11-29 00:00: 00 Yes [id number] 500mg Take 1 tablet by mouth in the morning and 1 tablet in the evening. Take with meals. [facility] ondansetron (ZOFRAN-ODT ) disintegrat ing tablet 4 mg 05-10 01:15: 00 05-10 00:12 :00 No 4mg 4 mg, Oral, ONCE, 1 dose, Tue05/09/20 at 1915, Routine [facility] NaCl 0.9% (NS) bolus infusion 1,000 mL 2 00:30: 00 05-10 02:56 :00 No 1000mL at 999 mL/hr, 1,000 mL, IV Infusion, ONCE, 1 dose, Tue05/09/20 at 1830, STAT [facility] ondansetron (ZOFRAN ODT) 4 mg disintegrat ing tablet 2 00:00: 00 Yes [id number] 4mg Take 1 tablet by mouth every 8 (eight) hours as needed for Nausea and Vomiting (N/V). [facility] albuterol 90 mcg/actuati on inhaler 2 00:00: 00 Yes [id number] 2{puff} Inhale 2 Puffs every 4 (four) hours as needed for Wheezing or Shortness of Breath. [facility] ondansetron (ZOFRAN ODT) 4 mg disintegrat ing tablet 05-09 00:00: 00 Yes [id number] 4mg Take 1 tablet by mouth every 8 (eight) hours as needed for Nausea and Vomiting (N/V). [facility] albuterol 90 mcg/actuati on inhaler 2 00:00: 00 Yes [id number] 2{puff} Inhale 2 Puffs every 4 (four) hours as needed for Wheezing or Shortness of Breath. [facility] ondansetron (ZOFRAN ODT) 4 mg disintegrat ing tablet 2 00:00: 00 Yes [id number] 4mg Take 1 tablet by mouth every 8 (eight) hours as needed for Nausea and Vomiting (N/V). [facility] albuterol 90 mcg/actuati on inhaler 205 00:00: 00 Yes [id number] 2{puff} Inhale 2 Puffs every 4 (four) hours as needed for Wheezing or Shortness of Breath. [facility] ondansetron (ZOFRAN ODT) 4 mg disintegrat ing tablet 205 00:00: 00 Yes [id number] 4mg Take 1 tablet by mouth every 8 (eight) hours as needed for Nausea and Vomiting (N/V). [facility] albuterol 90 mcg/actuati on inhaler 2-05 00:00: 00 Yes [id number] 2{puff} Inhale 2 Puffs every 4 (four) hours as needed for Wheezing or Shortness of Breath. [facility] Vital Signs Vital Name Observation Time Observation Value Comments S andrea Body height 2022-12-02 19:09:00 174 cm [facility] Body weight 2022-12-02 19:09:00 75.524 kg [facility] BMI 2022-12-02 19:09:00 24.95 kg/m2 [facility] Systolic blood pressure 2022-11-29 18:59:00 154 mm[Hg] [facility] Diastolic blood pressure 2022-11-29 18:59:00 74 mm[Hg] [facility] Heart rate 2022-11-29 18:59:00 69 /min [facility] Body temperature 2022-11-29 18:59:[address] [facility] Respiratory rate 2022-11-29 18:59:00 20 /min [facility] Body weight 2022-11-29 18:59:00 74.844 kg [facility] Oxygen saturation in Arterial blood by Pulse oximetry 2022-11-29 18:59:00 99 /min [facility] Systolic blood pressure 2020-05-10 02:56:00 153 mm[Hg] [facility] Diastolic blood pressure 2020-05-10 02:56:00 63 mm[Hg] [facility] Heart rate 2020-05-10 02:56:00 87 /min [facility] Respiratory rate 2020-05-10 02:56:00 16 /min [facility] Oxygen saturation in Arterial blood by Pulse oximetry 2020-05-10 02:56:00 97 /min [facility] Body weight 2020-05-10 00:07:00 74.844 kg [facility] Body temperature 2020-05-09 23:44:[address] [facility] Systolic blood pressure 2020-05-10 02:56:00 153 mm[Hg] [facility] Diastolic blood pressure 2020-05-10 02:56:00 63 mm[Hg] [facility] Heart rate 2020-05-10 02:56:00 87 /min [facility] Respiratory rate 2020-05-10 02:56:00 16 /min [facility] Oxygen saturation in Arterial blood by Pulse oximetry 2020-05-10 02:56:00 97 /min [facility] Body weight 2020-05-10 00:07:00 74.844 kg [facility] Body temperature 2020-05-09 23:44:[address] [facility] Procedures Procedure Date / Time Performed Performing Clinicia n Source CONSENT/REFUSAL FOR DIAGNOSIS AND TREATMENT 2022-11-29 18:54:35 Doctor Unassigned, [place] [facility] BASIC METABOLIC PANEL (NA, K, CL, CO2, GLUCOSE, BUN, CREATININE, CA) 2020-05-10 00:19:[address] [facility] CBC WITHOUT DIFF 2020-05-10 00:19:00 Jasmeet Wallace [facility] NOTICE OF PRIVACY PRACTICES 2020-05-09 23:38:29 Doctor Unassigned, [place] [facility] Encounters Start Date/Time End Date/Time Encounter Type Admission Type Attending [facility] Care Facility Care Department Encounter ID Source 2023-01-28 12:15:00 2023-01-28 12:15:00 Outpatient SYDNEE MCKAY [facility] [id number] [facility] 2023-01-24 14:53:40 2023-01-24 14:53:40 Outpatient SFA SFA [id number] Hussein Ferire 2023-01-18 09:41:31 2023-01-18 09:41:31 Outpatient SFA SFA [id number] Hussein Freire 2022-12-02 14:30:00 2022-12-02 14:57:57 Outpatient MARC GONZALES [facility] [id number] [facility] 2022-12-02 14:30:00 2022-12-02 14:57:57 Office Visit Marc Hernandez [facility] [employer] [facility] BLDG. [id number] [facility] 2022-11-29 14:01:00 2022-11-29 15:28:00 Emergency X Leland LIGHT [facility] ERT [id number] [facility] 2022-11-29 14:01:00 2022-11-29 15:28:00 Emergency Leland Lightge [facility] [id number] [facility] 2021-12-06 20:39:00 2021-12-07 15:10:00 Inpatient ECTOR ROE [facility] MED [id number] [facility] 2020-05-09 17:48:00 2020-05-09 21:02:00 Emergency Jasmeet Wallace [facility] [id number] [facility] 2020-05-09 17:48:00 2020-05-09 21:02:00 Emergency Jasmeet Wallace [facility] [id number] 2020-05-09 17:40:00 2020-05-09 17:40:00 Emergency X JASMEET WALLACE [facility] ERT [id number] [facility] Results Test Description Test Time Test Comments Results Result Co mments Source [facility] [id number] 00:32:00* Test Item Value Reference Range Interpretation Comme nts WBC (test code = 6690-2) See_Comment [Automated messa ge] The system which generated this result transmitted reference range: 4.20 - 10.70 10*3/?L. The reference range was not used to interpret this result as normal/abnormal. RBC (test code = 789-8) See_Comment [Automated Agendaa ge] The system which generated this result transmitted reference range: 4.26 - 5.52 10*6/?L. The reference range was not used to interpret this result as normal/abnormal. HGB (test code = 718-7) 14.3 g/dL 12.2-16.4 HCT (test code = 4544-3) 41.9 % 38.4-49.3 MCH (test code = 785-6) 30.2 pg 26.1-32.7 MCV (test code = 787-2) 88.4 fL 81.7-95.6 MCHC (test code = 786-4) 34.1 g/dL 31.2-35 PLT (test code = 777-3) See_Comment [Automated Agendaa ge] The system which generated this result transmitted reference range: 150 - 328 10*3/?L. The reference range was not used to interpret this result as normal/abnormal. MPV (test code = 16451-6) 10.6 fL 9.8-13 RDW-CV (test code = 788-0) 12.1 % 12.1-15.4 RDW-SD (test code = 21347-0) 39.4 fL 38.5-51.6 NRBC x10^3 (test code = 7546904772) <0.01 See_Comment [Automated me ssage] The system which generated this result transmitted reference range: 10*3/?L. The reference range was not used to interpret this result as normal/abnormal. NRBC/100 WBC (test code = 5174784503) See_Comment [Automated me ssage] The system which generated this result transmitted reference range: 0.0 - 10.0 /100 WBCs. The reference range was not used to interpret this result as normal/abnormal. IPF % (test code = 4425800274) [facility] Notes Date/Time Note Provider Source 2022-11-29 15:27:57 [id number]+[id number] R4GV+az7pg0gGCl tqHkprqe1tF5ErZkLbt6AhCM+wCKn6817-1 11-29T15:27:57 Pt given printed and verbal discharge instructions regarding Impacted ear wax, encouraged hydration,1 Prescriptions providedDiscussed ibuprofen and to take with food to avoid GI distress.Pt verbalized understanding of instructions, pt awake alert oriented, resp reg unlabored, skin w/d, color appropriate for race, moves all ext well,pt encouraged to follow up with pcp Advised to seek medical attention for new/prolonged/worsening of symptoms,No adverse reaction to meds given in ER noted upon dischargeAwake, alert oriented, resp reg unlabored, skin w/d, pt leaving amb with steady gait, in no apparent distress, 40606-7Jemxrrrbv department LbtbUZ9756-77-43S10:28:24[facility] [id number]. [id number]|[id number] for patient pafc57246-7WzwfEFYTHVRVWM[address] Kw[id number] 5EDFAOTGRYDXVAOJCWCHHVU3674-40-10C5 5:28:241.2.840.410405.1.72.3.15|1.2 .840.317384.1.13.104.2.7.2.727879_[id number] [facility] 2022-11-29 13:58:31 aVlPJKKAAp3POITzNBzA FouIBOfFc2115Sy Z1SW1jXSmaFxn9Fmb3DL2LmsGKBnD3064-9 11-29T13:58:31 Patient reports that he began to have pain in his right ear over the weekend. States that he called his PCP Dr. Enriquez and no appointments were available for 2 weeks. Taking Tylenol with minimal relief for the pain. 61091-1Jhxlwjzbo department Triage caneDV0724-18-89Z41:59:37[facility] Triage noteTXT1.2.840.978282.1.13.104.2.7. 2.118946|[id number] for patient pzhl80881-7Vlnydfjnh department [id number] M Hayes RN[address] Aq[id number] 8ZSAOYZCEOTWDLTYVSVBMVF4198-14-50M4 3:59:371.2.840.801349.1.72.3.15|1.2 .840.486397.1.13.104.2.7.2.727879_1 [id number] Casi Bolton RN [facility]"
[2023-05-16 22:07] LABS: SARS-CoV-2 Antigen Rapid Res Positive (Negative)
--- NOTE | 2023-05-16 23:13 | ER ---
Nurse's Notes [facility] Name: Feliz Parkinson Age: 72 yrs Sex: Male : 1950 Arrival Date: 05/16/2023 Time: 20:44 Bed IW4 Private MD: Diagnosis: Other specified viral diseases;Acute pharyngitis, COVID-19, Sore throat , acute bronchitis Presentation: 05/16 21:22 Chief complaint: Patient states: Pt c/o runny nose, sore throat, cough, and chills tl4 since last night. Coronavirus screen: chills, congestion, cough unrelated to allergies, runny nose, shaking with chills, sore throat. Ebola Screen: No symptoms or risks identified at this time. Initial Sepsis Screen: Does the patient meet any 2 criteria? No. Patient's initial sepsis screen is negative. Does the patient have a suspected source of infection? No. Patient's initial sepsis screen is negative. Risk Assessment: Do you want to hurt yourself or someone else? Patient reports no desire to harm self or others. Onset of symptoms was May 15, 2023. 21:22 Method Of Arrival: Ambulatory tl4 21:22 Acuity: RAYNA 4 tl4 Triage Assessment: 21:25 General: Appears ill, Behavior is calm, cooperative. Pain: Denies pain. EENT: Reports tl4 difficulty swallowing nasal congestion nasal discharge. Neuro: No deficits noted. Cardiovascular: No deficits noted. Denies chest pain, diaphoresis, fatigue, lightheadedness, nausea, palpitations. Respiratory: Reports cough that is dry. GI: No deficits noted. No signs and/or symptoms were reported involving the gastrointestinal system. : No deficits noted. No signs and/or symptoms were reported regarding the genitourinary system. Derm: No deficits noted. No signs and/or symptoms reported regarding the dermatologic system. Historical: - Allergies: 21:24 No Known Allergies; tl4 - Home Meds: 21:24 None [Active]; tl4 - PMHx: 21:24 None; tl4 - PSHx: 21:24 Cholecystectomy; tl4 - Immunization history:: Adult Immunizations unknown. - Social history:: Smoking status: Patient denies any tobacco usage or history of. - Family history:: not pertinent. Screenin:30 [facility] ED Fall Risk Assessment (Adult) History of falling in the last 3 months, tl4 including since admission No falls in past 3 months (0 pts) Confusion or Disorientation No (0 pts) Intoxicated or Sedated No (0 pts) Impaired Gait No (0 pts) Mobility Assist Device Used No (0 pt) Altered Elimination No (0 pt) Score/Fall Risk Level 0 - 2 = Low Risk Oriented to surroundings, Maintained a safe environment, Educated pt \T\ family on fall prevention, incl call for assistance when getting out of bed, Assessed \T\ reinforced patient's understanding of fall precautions, Provided non-skid footwear, Hourly rounding (assess needs \T\ fall precautionary measures) done, Used ambulatory aids as needed (educated on \T\ assisted with), Used gait belt as appropriate. Abuse screen: Denies threats or abuse. Denies injuries from another. Nutritional screening: No deficits noted. Tuberculosis screening: No symptoms or risk factors identified. Assessment: 22:46 Reassessment: No changes from previously documented assessment. Patient and/or family tl4 updated on plan of care and expected duration. Pain level reassessed. Patient is alert, oriented x 3, equal unlabored respirations, skin warm/dry/pink. Vital Signs: 21:22 BP 157 / 84; Pulse 90; Resp 20; Temp 98.4(TE); Pulse Ox 100% on R/A; Weight 77.11 kg; tl4 Height 5 ft. 9 in. ; Pain 0/10; 23:24 BP 143 / 79; Pulse 88; Resp 16; Temp 98.5(TE); Pulse Ox 100% on R/A; tl4 21:22 Body Mass Index 25.10 (77.11 kg, 175.26 cm) tl4 21:22 Pain Scale: Adult tl4 ED Course: 20:49 Patient arrived in ED. gm2 21:19 Beny Gonzalez MD is Attending Physician. sp4 21:24 Triage completed. tl4 21:25 Arm band placed on right wrist. tl4 21:33 SARS RAPID Sent. tl4 21:33 Influenza Screen (a \T\ B) Sent. tl4 22:45 Patient has correct armband on for positive identification. Provided Education on: ed tl4 process. 22:45 No provider procedures requiring assistance completed. Patient did not have IV access tl4 during this emergency room visit. Administered Medications: 23:04 Drug: AZITHromycin PO 500 mg PO once Route: PO; tl4 23:26 Follow up: Response: No adverse reaction tl4 23:04 Drug: Ibuprofen PO 800 mg PO once Route: PO; tl4 23:26 Follow up: Response: No adverse reaction tl4 23:04 Drug: Ondansetron PO 4 mg PO once Route: PO; tl4 23:25 Follow up: Response: No adverse reaction tl4 23:04 Drug: Dextromethorphan-Guaifenesin PO Liquid 10 mg-100 mg/5 mL 10 ml PO once Route: PO; tl4 23:25 Follow up: Response: No adverse reaction tl4 23:04 Drug: Acetaminophen PO 1000 mg PO once Route: PO; tl4 23:25 Follow up: Response: No adverse reaction tl4 23:04 Drug: Tessalon Perle PO 200 mg PO once Route: PO; tl4 23:25 Follow up: Response: No adverse reaction tl4 Medication: 22:46 VIS not applicable for this client. tl4 Outcome: 23:12 Discharge ordered by . sp4 23:24 Discharged to home ambulatory, tl4 23:24 Condition: stable 23:24 Discharge instructions given to patient, Instructed on discharge instructions, follow up and referral plans. medication usage, Demonstrated understanding of instructions, follow-up care, medications, Prescriptions given X 4, 23:25 Patient left the ED. tl4 Signatures: Beny Gonzalez MD MD sp4 Mindy Hernandez 2 Samir Nance RN RN tl4
--- NOTE | 2023-05-16 23:13 | EDPHYS ---
Physician Documentation [facility] Name: Feliz Parkinson Age: 72 yrs Sex: Male : 1950 Arrival Date: 05/16/2023 Time: 20:44 Bed IW4 Private MD: ED Physician Beny Gonzalez HPI: 05/16 21:19 This 72 yrs old Male presents to ER via Unassigned with complaints of Flu sp4 Symptoms. 05/17 20:50 Patient states since yesterday he has had some cough congestion and subjective fever, sp4 also feeling unwell. . Historical: - Allergies: 05/16 21:24 No Known Allergies; tl4 - Home Meds: 21:24 None [Active]; tl4 - PMHx: 21:24 None; tl4 - PSHx: 21:24 Cholecystectomy; tl4 - Immunization history:: Adult Immunizations unknown. - Social history:: Smoking status: Patient denies any tobacco usage or history of. - Family history:: not pertinent. ROS: 05/17 20:50 Constitutional: Positive fever, positive chills, positive congestion, positive cough, sp4 positive feeling overall unwell All other systems are negative, Exam: 20:50 Constitutional: This is a well developed, well nourished patient who is awake, alert, sp4 and in no acute distress. Head/Face: Normocephalic, atraumatic. Eyes: Pupils equal round and reactive to light, extra-ocular motions intact. Lids and lashes normal. Conjunctiva and sclera are not injected. Cornea within normal limits. Periorbital areas with no swelling, redness, or edema. ENT: Nares patent. No nasal discharge, no septal abnormalities noted. Tympanic membranes are normal and external auditory canals are clear. Oropharynx with no redness, swelling, or masses, exudates, or evidence of obstruction, uvula midline. Mucous membranes moist. Neck: Trachea midline, no thyromegaly or masses palpated, and no cervical lymphadenopathy. Supple, full range of motion without nuchal rigidity, or vertebral point tenderness. Chest/axilla: Normal chest wall appearance and motion. Nontender with no deformity. No lesions are appreciated. Cardiovascular: Regular rate and rhythm with a normal S1 and S2. No gallops, murmurs, or rubs. Normal PMI, no JVD. No pulse deficits. Respiratory: Lungs have equal breath sounds bilaterally, clear to auscultation and percussion. No rales, rhonchi or wheezes noted. No increased work of breathing, no retractions or nasal flaring. Abdomen/GI: Soft, non-tender, with normal bowel sounds. No distension or tympany. No guarding or rebound. No evidence of tenderness throughout. Back: No spinal tenderness. No costovertebral tenderness. Skin: Warm, dry with normal turgor. Normal color with no rashes, no lesions, and no evidence of cellulitis. MS/ Extremity: Pulses equal, no cyanosis. Neurovascular intact. Full, normal range of motion. Neuro: Awake and alert, GCS 15, oriented to person, place, time, and situation. Cranial nerves II-XII grossly intact. Motor strength 5/5 in all extremities. Sensory grossly intact. Psych: Awake, alert, with orientation to person, place and time. Behavior, mood, and affect are within normal limits Vital Signs: 05/16 21:22 BP 157 / 84; Pulse 90; Resp 20; Temp 98.4(TE); Pulse Ox 100% on R/A; Weight 77.11 kg; tl4 Height 5 ft. 9 in. ; Pain 0/10; 23:24 BP 143 / 79; Pulse 88; Resp 16; Temp 98.5(TE); Pulse Ox 100% on R/A; tl4 21:22 Body Mass Index 25.10 (77.11 kg, 175.26 cm) tl4 21:22 Pain Scale: Adult tl4 MDM: 21:20 Patient medically screened. sp4 05/17 20:50 Differential Diagnosis altered mental status, sepsis, flu. Data reviewed: vital signs, sp4 nurses notes, lab test result(s), Flu: negative. 20:52 Consideration of Admission/Observation Escalation of care including sp4 admission/observation considered. ED course: Influenza is negative, COVID-19 is positive. Patient will be treated with Paxil bid also prescribed a Z-José Antonio for signs of acute pharyngitis. 05/16 21:28 Order name: Influenza Screen (a \T\ B); Complete Time: 20:52 sp4 05/16 21:28 Order name: SARS RAPID; Complete Time: 23:06 sp4 Administered Medications: 05/16 23:04 Drug: AZITHromycin PO 500 mg PO once Route: PO; tl4 23:26 Follow up: Response: No adverse reaction tl4 23:04 Drug: Ibuprofen PO 800 mg PO once Route: PO; tl4 23:26 Follow up: Response: No adverse reaction tl4 23:04 Drug: Ondansetron PO 4 mg PO once Route: PO; tl4 23:25 Follow up: Response: No adverse reaction tl4 23:04 Drug: Dextromethorphan-Guaifenesin PO Liquid 10 mg-100 mg/5 mL 10 ml PO once Route: PO; tl4 23:25 Follow up: Response: No adverse reaction tl4 23:04 Drug: Acetaminophen PO 1000 mg PO once Route: PO; tl4 23:25 Follow up: Response: No adverse reaction tl4 23:04 Drug: Tessalon Perle PO 200 mg PO once Route: PO; tl4 23:25 Follow up: Response: No adverse reaction tl4 Disposition Summary: 05/16/23 23:12 Discharge Ordered Notes: Location: Home sp4 Problem: new sp4 Symptoms: have improved sp4 Condition: Stable sp4 Diagnosis - Other specified viral diseases sp4 - Acute pharyngitis, COVID-19, Sore throat , acute bronchitis sp4 Followup: sp4 - With: Private Physician - When: 7 - 10 days - Reason: Recheck today's complaints Discharge Instructions: - Discharge Summary Sheet sp4 - COVID-19 sp4 Forms: - Patient Portal Instructions sp4 - Work release form tl4 Prescriptions: - Paxlovid 300 mg (150 mg x 2)-100 mg Oral Tablet, Dose Pack - take 1 dose pack ORAL route as directed on dose pack take TWO 150 mg tablets of sp4 nirmatrelvir with ONE 100 mg tablet of ritonavir twice daily for 5 days; 1 packet; Refills: 0, Product Selection Permitted - dextromethorphan-guaifenesin 60-1,200 mg Oral Tablet, Extended Release 12 hr - take 1 tablet ORAL route every 12 hours PRN cough; 42 tablet; Refills: 0, sp4 Product Selection Permitted - Zithromax Z-José Antonio 250 mg Oral Tablet - take 1 tablet ORAL route as directed for 5 days Day 1 - take two (2) tablets sp4 one time. Day 2, 3, 4 , 5 take one (1) tablet once daily.; 6 tablet; Refills: 0, Product Selection Permitted - promethazine 25 mg Oral tablet - take 1 tablet ORAL route every 6 hours As needed PRN nausea; 30 tablet; sp4 Refills: 0, Product Selection Permitted Signatures: Dispbrayden [employer] Beny Tolliver MD MD sp4 Samir Nance RN RN tl4
[2023-05-17 00:45] VITALS: BP 143/79; TEMP 98.5; O2SAT 100
== END ==
LOC: ER 20:44
DX: U07.1 COVID-19 (principal); J20.9 Acute bronchitis, unspecified
CPT/HCPCS: 36415; 87804 ×2; 87811; Q0162; 99284

== ENCOUNTER → 2023-06-26 | Emergency (ER) | payer OTHER ==
--- OUTSIDE RECORDS SUMMARY | 2023-06-26 10:41 | XMS REPORT | Continuity of Care Document ---
Author Name Unknown Address [address] [id number] [facility] thconnect Address [phone] Care Team Providers Care Hypoid Gear Tester Name Role Phone SYSTEM, PCP NOT IN Primary Care Physician MARC Chen Attending Clinician Unavailable SYDNEE PINEDA Attending Clinician Unavailable Marc Hernandez PA-C Attending Clinician [phone] Leland LIGHT Attending Clinician Unavailable Leland Phipps Attending Clinician [phone] Benoit Hensley Attending Clinician [phone] BENOIT BEAVER Attending Clinician Unavailable Payers Payer Name Policy Type Policy Number Effective Date Expirati on Date Source [employer] MED[employer]ANTAGE [id number] 2022 00:00:00 Problems Condition Name Condition Details Condition Category Status Onset Date Resolution Date Last Treatment Date Treating Clinician Comments Source No known active problems No known active problems Disease [facility] Allergies, Adverse Reactions, Alerts Allergy Name Allergy Type Status Severity Reaction(s) Onset Date Inactive Date Treating Clinician Comments Source NO KNOWN ALLERGIE S Drug Class Active [facility] Social History Social Habit Start Date Stop Date Quantity Comments Source Gender identity [facility] Sexual orientation U [facility] Exposure to SARS-CoV-2 (event) Yes [facility] Sex Assigned At 1950 00:00:00 1950 00:00:00 [facility] Smoking Status Start Date Stop Date Source Tobacco smoking consumption unknown [facility] Medications Ordered Medication Name Filled Medication Name Start Date Stop Date Current Medication? Ordering Clinician Indication Dosage Frequency Signature (SIG) Comments Components Source fluticasone propionate 50 mcg/actuati on nasal spray 12-02 00:00: 00 Yes [id number] 1{spray } Use 1 [place] in each nostril in the morning. [facility] fluticasone propionate 50 mcg/actuati on nasal spray 12-02 00:00: 00 Yes [id number] 1{spray } Use 1 [place] in each nostril in the morning. [facility] naproxen (NAPROSYN) tablet 500 mg 11-29 21:15: 00 11-29 20:15 :00 No 500mg 500 mg, Oral, ONCE, 1 dose, On Tue11/29/22 at 1615, Routine [facility] naproxen (NAPROSYN) 500 mg tablet 11-29 00:00: 00 Yes [id number] 500mg Take 1 tablet by mouth in the morning and 1 tablet in the evening. Take with meals. [facility] naproxen (NAPROSYN) 500 mg tablet 11-29 00:00: 00 Yes [id number] 500mg Take 1 tablet by mouth in the morning and 1 tablet in the evening. Take with meals. [facility] naproxen (NAPROSYN) 500 mg tablet 11-29 00:00: 00 Yes [id number] 500mg Take 1 tablet by mouth in the morning and 1 tablet in the evening. Take with meals. [facility] ondansetron (ZOFRAN-ODT ) disintegrat ing tablet 4 mg 05-10 01:15: 00 05-10 00:12 :00 No 4mg 4 mg, Oral, ONCE, 1 dose, Tue05/09/20 at 1915, Routine [facility] NaCl 0.9% (NS) bolus infusion 1,000 mL 05-10 00:30: 00 05-10 02:56 :00 No 1000mL at 999 mL/hr, 1,000 mL, IV Infusion, ONCE, 1 dose, 05/09/20 at 1830, STAT [facility] ondansetron (ZOFRAN ODT) 4 mg disintegrat ing tablet 2 00:00: 00 Yes [id number] 4mg Take 1 tablet by mouth every 8 (eight) hours as needed for Nausea and Vomiting (N/V). [facility] albuterol 90 mcg/actuati on inhaler 2 00:00: 00 Yes [id number] 2{puff} Inhale 2 Puffs every 4 (four) hours as needed for Wheezing or Shortness of Breath. [facility] ondansetron (ZOFRAN ODT) 4 mg disintegrat ing tablet 2 00:00: 00 Yes [id number] 4mg Take 1 tablet by mouth every 8 (eight) hours as needed for Nausea and Vomiting (N/V). [facility] albuterol 90 mcg/actuati on inhaler 2 00:00: 00 Yes [id number] 2{puff} Inhale 2 Puffs every 4 (four) hours as needed for Wheezing or Shortness of Breath. [facility] ondansetron (ZOFRAN ODT) 4 mg disintegrat ing tablet 2 00:00: 00 Yes [id number] 4mg Take 1 tablet by mouth every 8 (eight) hours as needed for Nausea and Vomiting (N/V). [facility] albuterol 90 mcg/actuati on inhaler 2-05 00:00: 00 Yes [id number] 2{puff} Inhale 2 Puffs every 4 (four) hours as needed for Wheezing or Shortness of Breath. [facility] ondansetron (ZOFRAN ODT) 4 mg disintegrat ing tablet 2 00:00: 00 Yes [id number] 4mg Take 1 tablet by mouth every 8 (eight) hours as needed for Nausea and Vomiting (N/V). [facility] albuterol 90 mcg/actuati on inhaler 2-05 00:00: 00 Yes [id number] 2{puff} Inhale 2 Puffs every 4 (four) hours as needed for Wheezing or Shortness of Breath. [facility] Vital Signs Vital Name Observation Time Observation Value Comments S juliance Body height 2022-12-02 19:09:00 174 cm [facility] Body weight 2022-12-02 19:09:00 75.524 kg [facility] BMI 2022-12-02 19:09:00 24.95 kg/m2 [facility] Systolic blood pressure 2022-11-29 18:59:00 154 mm[Hg] [facility] Diastolic blood pressure 2022-11-29 18:59:00 74 mm[Hg] [facility] Heart rate 2022-11-29 18:59:00 69 /min [facility] Body temperature 2022-11-29 18:59:00 37 Khushboo [facility] Respiratory rate 2022-11-29 18:59:00 20 /min [facility] Body weight 2022-11-29 18:59:00 74.844 kg [facility] Oxygen saturation in Arterial blood by Pulse oximetry 2022-11-29 18:59:00 99 /min [facility] Systolic blood pressure 2020-05-10 02:56:00 153 mm[Hg] [facility] Diastolic blood pressure 2020-05-10 02:56:00 63 mm[Hg] [facility] Heart rate 2020-05-10 02:56:00 87 /min [facility] Respiratory rate 2020-05-10 02:56:00 16 /min [facility] Oxygen saturation in Arterial blood by Pulse oximetry 2020-05-10 02:56:00 97 /min [facility] Body weight 2020-05-10 00:07:00 74.844 kg [facility] Body temperature 2020-05-09 23:44:00 37.06 Khushboo [facility] Systolic blood pressure 2020-05-10 02:56:00 153 mm[Hg] [facility] Diastolic blood pressure 2020-05-10 02:56:00 63 mm[Hg] [facility] Heart rate 2020-05-10 02:56:00 87 /min [facility] Respiratory rate 2020-05-10 02:56:00 16 /min [facility] Oxygen saturation in Arterial blood by Pulse oximetry 2020-05-10 02:56:00 97 /min [facility] o [facility] Body weight 2020-05-10 00:07:00 74.844 kg [facility] Body temperature 2020-05-09 23:44:00 37.06 Khushboo [facility] Procedures Procedure Date / Time Performed Performing Clinicia n Source CONSENT/REFUSAL FOR DIAGNOSIS AND TREATMENT 2022-11-29 18:54:35 Doctor Unassigned, [place] BASIC METABOLIC PANEL (NA, K, CL, CO2, GLUCOSE, BUN, CREATININE, CA) 2020-05-10 00:19:00 Benoit Beaver [facility] CBC WITHOUT DIFF 2020-05-10 00:19:00 Benoit Beaver [facility] NOTICE OF PRIVACY PRACTICES 2020-05-09 23:38:29 Doctor Unassigned, [place] [facility] Encounters Start Date/Time End Date/Time Encounter Type Admission Type Attending Clinicians Care Facility Care Department Encounter ID Source 2023-06-02 16:00:00 2023-06-02 16:00:00 Outpatient MARC GONZALES [facility] [id number] [facility] 2023-01-28 12:15:00 2023-01-28 12:15:00 Outpatient SYDNEE MCKAY [facility] [id number] [facility] 2023-01-24 14:53:40 2023-01-24 14:53:40 Outpatient SFA SFA [id number] Hussein Silva Tani 2023-01-18 09:41:31 2023-01-18 09:41:31 Outpatient SFA SFA [id number] Hussein Shira Tani 2022-12-02 14:30:00 2022-12-02 14:57:57 Outpatient MARC GONZALES [facility] [id number] [facility] 2022-12-02 14:30:00 2022-12-02 14:57:57 Office Visit Marc Hernandez [facility]. [id number] [id number] [facility] 2022-11-29 14:01:00 2022-11-29 15:28:00 Emergency Leland [facility] ERT [id number] [facility] 2022-11-29 14:01:00 2022-11-29 15:28:00 Emergency Leland Light [facility] [id number] [id number] [facility] 2020-05-09 17:48:00 2020-05-09 21:02:00 Emergency Benoit Beaver [facility] [id number] [id number] [facility] 2020-05-09 17:48:00 2020-05-09 21:02:00 Emergency Benoit Beaver [facility] [id number] [id number] 2020-05-09 17:40:00 2020-05-09 17:40:00 Emergency BENOIT K[facility] ERT [id number] [facility] Results Test Description Test Time Test Comments Results Result Co mments Source [facility] [id number] 00:32:00* Test Item Value Reference Range Interpretation Comme nts WBC (test code = 6690-2) See_Comment [Automated messa ge] The system which generated this result transmitted reference range: 4.20 - 10.70 10*3/?L. The reference range was not used to interpret this result as normal/abnormal. RBC (test code = 789-8) See_Comment [Automated messa ge] The system which [...] PLT (test code = 777-3) See_Comment [Automated messa ge] The system which generated this result transmitted reference range: 150 - 328 10*3/?L. The reference range was not used to interpret this result as normal/abnormal. MPV (test code = 90439-5) 10.6 fL 9.8-13 RDW-CV (test code = 788-0) 12.1 % 12.1-15.4 RDW-SD (test code = 04100-9) 39.4 fL 38.5-51.6 NRBC x10^3 (test code = 2604292592) <0.01 See_Comment [Automated me ssage] The system which generated this result transmitted reference range: 10*3/?L. The reference range was not used to interpret this result as normal/abnormal. NRBC/100 WBC (test code = 9952271335) See_Comment [Automated me ssage] The system which generated this result transmitted reference range: 0.0 - 10.0 /100 WBCs. The reference range was not used to interpret this result as normal/abnormal. IPF % (test code = 8812344686) [facility] Notes Date/Time Note Provider Source 2022-11-29 15:27:57 [id number]+8S R4GV+sc1gx3lNKh bwCslwzm4xN5CvVpYbh7FsGR+wQCa8266-1 11-29T15:27:57 Pt given printed and verbal discharge [...] with steady gait, in no apparent distress, 84770-2Wfvxsutzb department GjruUB7292-04-72I07:28[facility] [id number]. [id number] for patient tikh56078-8SavgBCFAGJZFXS[id number] 9LAJPFZKKFMCEIZIJLYZAEU1538-13-87Q0 5:28:241.2.840.536448.1.72.3.15|1.2 .840.590646.1.13.104.2.7.2.727879_1 [id number] [facility] 2022-11-29 13:58:31 jJuZEZPOXl5UECLkIMwD IkbTDEpEj7913Ie C3UB2lIUmeKra0Bdl2YO3LokKAJtB3334-2 11-29T13:58:31 Patient reports that he began to have pain in his right ear over the weekend. States that he called his PCP Dr. Enriquez and no appointments were available for 2 weeks. Taking Tylenol with minimal relief for the pain. 54658-1Lqkwdldxq department Triage aoqoIV0874-71-86W45:59:37[facility] Triage [id number]. [id number]|[id number] for patient zzde31641-4Ytsevktqc department [id number] M Hayes RN[address] Em[id number] 3MFQVCCURYDLTOVXQJJVEEH7635-44-01G8 3:59:371.2.840.933667.1.72.3.15|1.2 .840.131076.1.13.104.2.7.2.727879_1 [id number] Casi Bolton RN [facility]"
--- NOTE | 2023-06-26 12:40 | RAD REPORT ---
EXAM DESCRIPTION: RAD - Humerus Right - 06/26/2023 12:33 pm CLINICAL HISTORY: PAIN COMPARISON: No comparisons FINDINGS: Mild AC joint and glenohumeral joint arthritic changes are present. No acute fracture or d islocation seen.
--- NOTE | 2023-06-26 12:41 | RAD REPORT ---
EXAM DESCRIPTION: RAD - Forearm Right - 06/26/2023 12:33 pm CLINICAL HISTORY: PAIN COMPARISON: No comparisons FINDINGS: Vascular atherosclerotic calcification seen. Moderate radiocarpal degenerative changes. No acute fracture or dislocation.
--- NOTE | 2023-06-26 13:09 | EDPHYS ---
Physician Documentation [facility] Name: Feliz Parkinson Age: 72 yrs Sex: Male : 1950 Arrival Date: 06/26/2023 Time: 10:37 Bed 14 Private MD: ED Physician Jorge Escobedo HPI: 06/25 10:52 This 72 yrs old Male presents to ER via Unassigned with complaints of Fall kb Injury, Elbow Injury. 10:52 Pt is a 72 year old male who presents with right arm pain, mostly to elbow with kb radiation through forearm and humerus, after falling from roof onto porch last night. Denies any other injuries or loc. Ambulates with steady gait. . Historical: - Allergies: 10:53 No Known Allergies; nj1 - PMHx: 10:53 None; nj1 - Immunization history:: Client reports receiving the 2nd dose of the Covid vaccine. - Social history:: Smoking status: Patient denies any tobacco usage or history of. ROS: 10:51 Constitutional: As per HPI kb Exam: 10:51 Constitutional: This is a well developed, well nourished patient who is awake, alert, kb and in no acute distress. Head/Face: Normocephalic, atraumatic. ENT: Moist Mucous membranes Cardiovascular: Regular rate Respiratory: Respirations even and unlabored. No increased work of breathing. Talking in full sentences Abdomen/GI: Soft, non-tender. No distention Skin: Warm, dry with normal turgor. Normal color. Neuro: Awake and alert, GCS 15, oriented to person, place, time, and situation. Moves all extremities. Normal gait. 10:51 Musculoskeletal/extremity: Extremities: grossly normal except: noted in the right antecubital area and right forearm: decreased ROM, ecchymosis, pain, swelling, tenderness, ROM: limited active range of motion due to pain, Circulation is intact in all extremities. Sensation intact. Vital Signs: 10:45 BP 147 / 73; Pulse 85; Resp 16; Temp 98.1(TE); Pulse Ox 94% on R/A; Weight 77.11 kg; nj1 Height 5 ft. 9 in. ; Pain 2/10; 13:50 BP 133 / 66; Pulse 80; Resp 18; Temp 98; Pulse Ox 98% on R/A; db 10:45 Body Mass Index 25.10 (77.11 kg, 175.26 cm) nj1 10:45 Pain Scale: Adult nj1 MDM: 10:42 Patient medically screened. kb 10:51 Differential diagnosis: contusion, fracture, strain. Data reviewed: vital signs, nurses kb notes. 12:54 Counseling: I had a detailed discussion with the patient and/or guardian regarding the kb historical points, exam findings, and any diagnostic results supporting the discharge/admit diagnosis, radiology results, the need for outpatient follow up, a family practitioner, to return to the emergency department if symptoms worsen or persist or if there are any questions or concerns that arise at home. 06/25 10:50 Order name: Humerus Right XRAY; Complete Time: 12:46 kb 06/25 10:50 Order name: Forearm Right XRAY; Complete Time: 12:46 kb 06/25 12:55 Order name: Ice pack; Complete Time: 14:03 kb 06/25 13:07 Order name: Sling; Complete Time: 14:03 kb Administered Medications: No medications were administered Disposition Summary: 06/26/23 13:08 Discharge Ordered Notes: Location: Home kb Condition: Stable kb Diagnosis - Contusion of right forearm kb Followup: kb - With: Emergency Department - When: As needed - Reason: Worsening of condition Followup: kb - With: Private Physician - When: 2 - 3 days - Reason: Recheck today's complaints, Continuance of care, Re-evaluation by your physician Discharge Instructions: - Discharge Summary Sheet kb - Contusion, [id number] kb - Elbow Contusion, [id number] kb Forms: - Medication Reconciliation Form kb - Thank You Letter kb - Antibiotic Education kb - Prescription Opioid Use kb - Patient Portal Instructions kb - Leadership Thank You Letter kb Signatures: Dispatcher [employer] Ruth Miranda, PERFORATOR OPERATOR [employer]LL-C PERFORATOR OPERATOR [employer]LL-Belinda River, RN RN nj1
--- NOTE | 2023-06-26 13:09 | ER ---
Nurse's Notes [facility] Name: Feliz Parkinson Age: 72 yrs Sex: Male : 1950 Arrival Date: 06/26/2023 Time: 10:37 Bed 14 Private MD: Diagnosis: Contusion of right forearm Presentation: 06/25 10:45 Chief complaint: Patient states: Fell yesterday off ladder while working [place]. Denies hitting head, does not take any blood thinners. co right elbow/forearm pain, states "i cannot move my arm". Pt guarding arm. 10:45 Coronavirus screen: Vaccine status: Patient reports receiving the 2nd dose of the covid nj1 vaccine. Ebola Screen: Patient denies travel to an Ebola-affected area in the 21 days before illness onset. Initial Sepsis Screen: Does the patient meet any 2 criteria? No. Patient's initial sepsis screen is negative. Does the patient have a suspected source of infection? No. Patient's initial sepsis screen is negative. Risk Assessment: Do you want to hurt yourself or someone else? Patient reports no desire to harm self or others. Onset of symptoms was June 25, 2023. 10:45 Method Of Arrival: Ambulatory [facility] 10:45 Acuity: RAYNA 3 nj Historical: - Allergies: 10:53 No Known Allergies; nj1 - PMHx: 10:53 None; nj1 - Immunization history:: Client reports receiving the 2nd dose of the Covid vaccine. - Social history:: Smoking status: Patient denies any tobacco usage or history of. Screenin:18 [facility] ED Fall Risk Assessment (Adult) History of falling in the last 3 months, db including since admission No falls in past 3 months (0 pts) Confusion or Disorientation No (0 pts) Intoxicated or Sedated No (0 pts) Impaired Gait No (0 pts) Mobility Assist Device Used No (0 pt) Altered Elimination No (0 pt) Score/Fall Risk Level 0 - 2 = Low Risk Oriented to surroundings, Maintained a safe environment. Abuse screen: Denies threats or abuse. Denies injuries from another. Nutritional screening: No deficits noted. Tuberculosis screening: No symptoms or risk factors identified. Assessment: 11:15 Reassessment: Patient appears in no apparent distress at this time. Patient and/or db family updated on plan of care and expected duration. Pain level reassessed. Patient is alert, oriented x 3, equal unlabored respirations, skin warm/dry/pink. General: Appears in no apparent distress. comfortable, Behavior is calm, cooperative. Pain: Complains of pain in right arm and right forearm. Neuro: Level of Consciousness is awake, alert, obeys commands, Oriented to person, place, time, situation. Respiratory: Airway is patent Respiratory effort is even, unlabored, Respiratory pattern is regular, symmetrical. Musculoskeletal: Circulation, motion, and sensation intact. 13:50 Reassessment: Patient appears in no apparent distress at this time. Patient and/or db family updated on plan of care and expected duration. Pain level reassessed. Patient is alert, oriented x 3, equal unlabored respirations, skin warm/dry/pink. Vital Signs: 10:45 BP 147 / 73; Pulse 85; Resp 16; Temp 98.1(TE); Pulse Ox 94% on R/A; Weight 77.11 kg; nj1 Height 5 ft. 9 in. ; Pain 2/10; 13:50 BP 133 / 66; Pulse 80; Resp 18; Temp 98; Pulse Ox 98% on R/A; db 10:45 Body Mass Index 25.10 (77.11 kg, 175.26 cm) nj1 10:45 Pain Scale: Adult nj1 ED Course: 10:41 Patient arrived in ED. ra3 10:42 Ruth Negrete FNP-C is [facility]. kb 10:42 Jorge Escobedo MD is Attending Physician. kb 10:51 Carole Wang, SOFIE is Primary Nurse. db 10:53 Triage completed. nj1 10:54 Arm band placed on. nj1 12:35 Humerus Right XRAY In Process Unspecified. EDMS 12:35 Forearm Right XRAY In Process Unspecified. EDMS 13:50 Patient has correct armband on for positive identification. Bed in low position. Call db light in reach. Side rails up X 1. Provided Education on: DISCHARGE. Pulse ox on. NIBP on. Warm blanket given. 13:50 No provider procedures requiring assistance completed. Patient did not have IV access db during this emergency room visit. 13:50 Sling applied to right arm. db Administered Medications: No medications were administered Medication: 13:50 VIS not applicable for this client. db Outcome: 13:08 Discharge ordered by MD. arevalo 13:50 Discharged to home ambulatory, db 13:50 Condition: stable 13:50 Discharge instructions given to patient, Instructed on discharge instructions, follow up and referral plans. 14:11 Patient left the ED. db Signatures: Dispatcher [employer] EDRuth Pryor FNP-C FNP-Ckb Benton, Danielle, RN RN db Belinda Le RN RN nj1 Rosita Huffman [facility]
[2023-06-26 14:47] VITALS: BP 133/66; TEMP 98; O2SAT 98
== END ==
LOC: ER 10:37
DX: S50.11XA Contusion of right forearm, initial encounter (principal); W18.30XA Fall on same level, unspecified, initial encounter
CPT/HCPCS: 99283

== ENCOUNTER 2024-02-11 06:31 | Emergency (ER) | payer OTHER ==
[2024-02-11] MEDS ORDERED: CYCLOBENZAPRINE 10 MG TAB ONE (07:14)
[2024-02-11] MEDS ORDERED: KETOROLAC 30 MG/ML INJ ONE (07:14)
--- NOTE | 2024-02-11 07:49 | RAD REPORT ---
EXAMINATION: CT LUMBAR SPINE WITHOUT CONTRAST CLINICAL INDICATION: Back pain TECHNIQUE: Axial CT images were obtained through the lumbar spine in s oft tissue and bone windows without intravenous contrast. Coronal and Sagittal reformatted images were created from the data set. One or more of the following dose reduction techniques were used: Aut omated exposure control, adjustment of the mA and/ or kV according to patient size, and/or iterative reconstruction. Unless otherwise specified, incidental findings do not require dedicated im aging follow-up. COMPARISON: No prior exam. FINDINGS: For purposes of this dictation, it is assumed that there are 5 non rib-bearing lumbar type vertebrae, and the most caudal fully segmented lumbar vertebra is labeled L5. No fracture seen No dislocation. Left lateral disc herniation. The disc extends superiorly. Small right lateral disc herniation L2-3 Disc bulge, ligamentum flavum hypertrophy L3-4. Mild to moderate narrowing right neural foramina. Facet hypertrophy L4-5. Mild to moderate narrowing right neural foramina. Small right paracentral disc herniation L5-S1. Facet hypertrophy. Mild to moderate narrowing left carley ral foramina. IMPRESSION: No fracture seen Small to moderate left lateral disc herniation L1-2 extending superiorly. 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
--- NOTE | 2024-02-11 08:08 | EDPHYS ---
Physician Documentation [facility] Name: Feliz Parkinson Age: 73 yrs Sex: Male : 1950 Arrival Date: 02/11/2024 Time: 06:31 Bed 19 Private MD: ED Physician Gatito Huff HPI: 02/10 07:07 This 73 yrs old Male presents to ER via Ambulatory with complaints of Low Back rt Pain. 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 States that is worse with movement. Denies numbness, tingling, other acute complaints. Symptoms are moderate in severity, aching in nature, nonradiating, no other aggravating or alleviating factors... Historical: - Allergies: 06:54 No Known Allergies; lg3 - Home Meds: 06:54 None [Active]; lg3 - PMHx: 06:54 None; lg3 - PSHx: 06:54 Cholecystectomy; lg3 - Immunization history:: Adult Immunizations up to date. - Infectious Disease History:: Denies. - Social history:: Smoking status: Patient denies any tobacco usage or history of. Patient uses alcohol, only on a social basis. Patient/guardian denies using street drugs. - Family history:: not pertinent. ROS: 07:07 Constitutional: Negative for fever, chills, and weight loss, Cardiovascular: Negative rt for chest pain, palpitations, and edema, Respiratory: Negative for shortness of breath, cough, wheezing, and pleuritic chest pain, Abdomen/GI: Negative for abdominal pain, nausea, vomiting, diarrhea, and constipation, Skin: Negative for injury, rash, and discoloration, Neuro: Negative for headache, weakness, numbness, tingling, and seizure, 07:07 Back: Positive for pain at rest, pain with movement, Negative for injury or acute deformity, Exam: 07:07 Constitutional: This is a well developed, well nourished patient who is awake, alert, rt and in no acute distress. Head/Face: Normocephalic, atraumatic. Chest/axilla: Normal chest wall appearance and motion. Nontender with no deformity. No lesions are appreciated. Cardiovascular: Regular rate and rhythm with a normal S1 and S2. No gallops, murmurs, or rubs. Normal PMI, no JVD. No pulse deficits. Respiratory: Lungs have equal breath sounds bilaterally, clear to auscultation and percussion. No rales, rhonchi or wheezes noted. No increased work of breathing, no retractions or nasal flaring. Abdomen/GI: Soft, non-tender, with normal bowel sounds. No distension or tympany. No guarding or rebound. No evidence of tenderness throughout. Skin: Warm, dry with normal turgor. Normal color with no rashes, no lesions, and no evidence of cellulitis. MS/ Extremity: Pulses equal, no cyanosis. Neurovascular intact. Full, normal range of motion. Neuro: Awake and alert, GCS 15, oriented to person, place, time, and situation. Cranial nerves II-XII grossly intact. Motor strength 5/5 in all extremities. Sensory grossly intact. Cerebellar exam normal. Normal gait. 07:07 Back: Tenderness to the mid lumbar region and right paraspinal region, no step-offs, Vital Signs: 06:52 Weight 77.11 kg (R); Height 5 ft. 8 in. (R); Pain 7/10; lg3 07:11 BP 127 / 63; Pulse 65; Resp 17 S; Temp 97.9(O); Pulse Ox 97% on R/A; Pain 8/10; kc6 06:52 Body Mass Index 25.85 (77.11 kg, 172.72 cm) lg3 06:52 Pain Scale: Adult lg3 07:11 Pain Scale: Adult kc6 MDM: 06:56 Medical Screening Exam initiated rt 09:16 Differential diagnosis: Arthritis, herniated disc. Data reviewed: vital signs, nurses rt notes. I considered the following discharge prescriptions or medication management in the emergency department Medications were administered in the Emergency Department. See MAR. Independent interpretation of the following test(s) in the Emergency Department CT Scan: My interpretation is No compression fracture seen on interpretation of CT scan images. Test considered but Not performed: MRI: No signs or symptoms of cauda equina syndrome, spinal epidural abscess, MRI is not emergently indicated. Counseling: I had a detailed discussion with the patient and/or guardian regarding the historical points, exam findings, and any diagnostic results supporting the discharge/admit diagnosis, radiology results, the need for outpatient follow up. Response to treatment: the patient's symptoms have markedly improved after treatment. 02/10 07:01 Order name: CT Lumbar Spine Wo Con; Complete Time: 07:53 rt Administered Medications: 07:22 Drug: Ketorolac IM 30 mg IM once Route: IM; Site: right deltoid; kc6 08:13 Follow up: Response: No adverse reaction kc6 07:22 Drug: Cyclobenzaprine PO 10 mg PO once Route: PO; kc6 08:13 Follow up: Response: No adverse reaction kc6 Disposition Summary: 02/11/24 08:08 Discharge Ordered Notes: Location: Home rt Problem: new rt Symptoms: have improved rt Condition: Stable rt Diagnosis - Low back pain rt Followup: rt - With: Private Physician - When: 2 - 3 days - Reason: Discharge Instructions: - Discharge Summary Sheet rt - Acute Back Pain, Adult rt Forms: - Work release form rt - Medication Reconciliation Form rt - Antibiotic Education rt - Prescription Opioid Use rt - Patient Portal Instructions rt - Leadership Thank You Letter rt Prescriptions: - Cyclobenzaprine 10 mg Oral tablet - take 1 tablet ORAL route every 8 hours As needed; 15 tablet; Refills: 0, rt Product Selection Permitted - Tramadol 50 mg Oral Tablet - take 1 tablet ORAL route every 8 hours as needed; 12 tablet; Refills: 0, rt Product Selection Permitted - Medrol (José Antonio) 4 mg Oral Tablets, Dose Pack - take 1 tablet ORAL route as directed - follow package instructions; 1 packet; rt Refills: 0, Product Selection Permitted Signatures: Dispatcher [employer] EDLizet Rivera RN RN lg3 Shellie Hensley RN RN kc6 Gatito Huff MD MD rt Corrections: (The following items were deleted from the chart) 07:02 07:02 Spine Lumbar Wo [id number] ordered. EDMS EDMS
--- NOTE | 2024-02-11 08:08 | ER ---
Nurse's Notes [facility] Name: Feliz Parkinson Age: 73 yrs Sex: Male : 1950 Arrival Date: 02/11/2024 Time: 06:31 Bed 19 Private MD: Diagnosis: Low back pain Presentation: 02/10 06:52 Chief complaint: Patient states: right low back pain X2 days. Coronavirus screen: lg3 Client denies travel out of the [place] in the last 14 days. At this time, the client does not indicate any symptoms associated with coronavirus-19. Ebola Screen: No symptoms or risks identified at this time. Risk Assessment: Do you want to hurt yourself or someone else? Patient reports no desire to harm self or others. Onset of symptoms was February 08, 2024. 06:52 Method Of Arrival: Ambulatory lg3 06:52 Acuity: RAYNA 4 lg3 Triage Assessment: 06:54 General: Appears in no apparent distress. uncomfortable, Behavior is calm, cooperative. lg3 Pain: Complains of pain in right low back Pain currently is 7 out of 10 on a pain scale. Aggravated by increased activity, repositioning, weight bearing, Noted to be resistant to movement. EENT: No deficits noted. No signs and/or symptoms were reported regarding the EENT system. Neuro: No deficits noted. Quiles Agitation-Sedation Scale (RASS): 0 - Alert and Calm Level of Consciousness is awake, alert, obeys commands, Oriented to person, place, time, situation. Cardiovascular: No deficits noted. Denies chest pain, shortness of breath, Capillary refill < 3 seconds Clubbing of nail beds is absent JVD is absent Patient's skin is warm and dry. Respiratory: No deficits noted. Airway is patent Respiratory effort is even, unlabored, Respiratory pattern is regular, symmetrical. GI: No deficits noted. No signs and/or symptoms were reported involving the gastrointestinal system. : No signs and/or symptoms were reported regarding the genitourinary system. Derm: No deficits noted. No signs and/or symptoms reported regarding the dermatologic system. Skin is intact, is healthy with good turgor, Skin is dry, Skin is normal, Skin temperature is warm. Musculoskeletal: Reports pain in low back area. Historical: - Allergies: 06:54 No Known Allergies; lg3 - Home Meds: 06:54 None [Active]; lg3 - PMHx: 06:54 None; lg3 - PSHx: 06:54 Cholecystectomy; lg3 - Immunization history:: Adult Immunizations up to date. - Infectious Disease History:: Denies. - Social history:: Smoking status: Patient denies any tobacco usage or history of. Patient uses alcohol, only on a social basis. Patient/guardian denies using street drugs. - Family history:: not pertinent. Screenin:23 [facility] ED Fall Risk Assessment (Adult) History of falling in the last 3 months, kc6 including since admission No falls in past 3 months (0 pts) Confusion or Disorientation No (0 pts) Intoxicated or Sedated No (0 pts) Impaired Gait No (0 pts) Mobility Assist Device Used No (0 pt) Altered Elimination No (0 pt) Score/Fall Risk Level 0 - 2 = Low Risk Oriented to surroundings. Abuse screen: Denies threats or abuse. Denies injuries from another. Nutritional screening: No deficits noted. Tuberculosis screening: No symptoms or risk factors identified. Assessment: 07:23 General: Appears in no apparent distress. uncomfortable, well groomed, well developed, kc6 Behavior is calm, cooperative, appropriate for age. Pain: Complains of pain in right low back Pain at worst was 9 out of 10 on a pain scale. Neuro: Level of Consciousness is awake, alert, obeys commands, Oriented to person, place, time, situation, Appropriate for age. Cardiovascular: Capillary refill < 3 seconds. Respiratory: Airway is patent Trachea midline Respiratory effort is even, unlabored, Respiratory pattern is regular, symmetrical. GI: No signs and/or symptoms were reported involving the gastrointestinal system. : No signs and/or symptoms were reported regarding the genitourinary system. EENT: No signs and/or symptoms were reported regarding the EENT system. Derm: No signs and/or symptoms reported regarding the dermatologic system. Skin is intact, is healthy with good turgor, Skin is pink, warm \T\ dry. Musculoskeletal: No signs and/or symptoms reported regarding the musculoskeletal system. Circulation, motion, and sensation intact. Capillary refill < 3 seconds, Range of motion: intact in all extremities. Vital Signs: 06:52 Weight 77.11 kg (R); Height 5 ft. 8 in. (R); Pain 7/10; lg3 07:11 BP 127 / 63; Pulse 65; Resp 17 S; Temp 97.9(O); Pulse Ox 97% on R/A; Pain 8/10; kc6 06:52 Body Mass Index 25.85 (77.11 kg, 172.72 cm) lg3 06:52 Pain Scale: Adult lg3 07:11 Pain Scale: Adult kc6 ED Course: 06:37 Patient arrived in ED. gm2 06:54 Triage completed. lg3 06:54 Gatito Huff MD is Attending Physician. rt 06:54 Arm band placed on right wrist. lg3 07:11 Shellie Hensley, SOFIE is Primary Nurse. kc6 07:23 Patient has correct armband on for positive identification. Bed in low position. Call kc6 light in reach. Side rails up X 1. Pulse ox on. NIBP on. Door closed. Noise minimized. Lights dimmed. Pillow given. 07:23 Patient maintains SpO2 saturation greater than 95% on room air. kc6 07:39 CT Lumbar Spine Wo Con In Process Unspecified. EDMS 08:21 Provided Education on: f/u with PCP for outpatient MRI as instructed by ED MD, yue alternate between ice and heat with prescribed medications and consider getting a lidocaine patch at the pharmacy to help as well. pt verbalizes understanding.. 08:21 No provider procedures requiring assistance completed. Patient did not have IV access kc6 during this emergency room visit. Administered Medications: 07:22 Drug: Ketorolac IM 30 mg IM once Route: IM; Site: right deltoid; kc6 08:13 Follow up: Response: No adverse reaction kc6 07:22 Drug: Cyclobenzaprine PO 10 mg PO once Route: PO; kc6 08:13 Follow up: Response: No adverse reaction kc6 Medication: 08:21 VIS not applicable for this client. kc6 Outcome: 08:08 Discharge ordered by MD. rt 08:21 Discharged to home ambulatory, with family, kc6 08:21 Condition: good 08:21 Discharge instructions given to patient, Instructed on discharge instructions, follow up and referral plans. no drinking with medication, no driving heavy equipment, medication usage, Demonstrated understanding of instructions, follow-up care, medications, Prescriptions given X 3, 08:22 Patient left the ED. kc6 Signatures: Dispatcher [employer] Lizet Pruitt, RN RN lg3 Shellie Hensley, RN RN kc6 Gatito Huff MD MD rt Mindy Hernandez gm2
[2024-02-11 08:29] VITALS: BP 127/63; TEMP 97.9; O2SAT 97
== END 2024-02-11 08:22 | disposition home or self-care (01) ==
LOC: ER 06:31
DX: M54.50 Low back pain, unspecified (principal)
CPT/HCPCS: 72131; 96372; 99284

== ENCOUNTER 2024-12-29 20:12 | Emergency (ER) | payer OTHER ==
--- OUTSIDE RECORDS SUMMARY | 2024-12-29 20:16 | XMS REPORT | Continuity of Care Document ---
Author Name Unknown Address [address] [facility] [address] [place] [address] Organization [facility] [place] Address [address] [facility] [address] [place] [address] Care Team Providers Care Wood Bucker Name Role Phone Page Mckeon Primary Care Physician + [phone] Angeline Oliveira MD Attending Clinician + [phone] Daniel Hurst APRN Attending Clinician +[phone] GETACHEW JONES Attending Clinician Unavailable MELANIE MACHADO Attending Clinician Unavailable FELICITAS WALLACE Attending Clinician UnavailFELICITAS Roman Attending Clinician UnavailFelicitas Roman MD Attending Clinician [phone] Radiology Attending Clinician Unavailable RADIOLOGY Attending Clinician Unavailable LINDA PENALOZA Attending Clinician Unavailab Linda Campo DO Attending Clinician +[phone] DANNY RIVERA Attending Clinician Unavailable Danny Rivera MD Attending Clinician +[phone] MARC HERNANDEZ Attending Clinician Unavailable SYDNEE PINEDA Attending Clinician Unavailable Marc Hernandez PA-C Attending Clinician +[phone] Leland LIGHT Attending Clinician Unavailable Leland Phipps Attending Clinician +[phone] ECTOR ROE Attending Clinician Un available Jasmeet Hensley Attending Clinician +[phone] JASMEET WALLACE Attending Clinician Unavailable TAINA MCKEON Admitting Clinician Unavail able LINDA PENALOZA Admitting Clinician Unavailab DANNY Sewell Admitting Clinician Unavailable ECTOR ROE Admitting Clinician Un available Payers Payer Name Policy Type Policy Number Effective Date Expirati on Date Source [facility] MEDICARE ADVANTAGE [id number] 2023 00:00:00 [employer] MEDICARE ADVANTAGE [id number] 2022 00:00:00 Problems Condition Name Condition Details Condition Category Status Onset Date Resolution Date Last Treatment Date Treating Clinician Comments Source Traumatic incomplete tear of right rotator cuff Traumatic incomplete tear of right rotator cuff Disease Active 5- 00:00: 00 [facility] Finger stiffness, right Finger stiffness, right Disease Active 07-31 00:00: 00 [facility] Traumatic rupture of radial collateral ligament of elbow, right, initial encounter Traumatic rupture of radial collateral ligament of elbow, right, initial encounter Disease Active 07-27 00:00: 00 [facility] Pain of right hand Pain of right hand Disease Active 07-27 00:00: 00 [facility] Dislocatio n of right elbow Dislocatio n of right elbow Disease Active 07-27 00:00: 00 [facility] Right shoulder pain Right shoulder pain Disease Active 07-27 00:00: 00 [facility] Right elbow pain Right elbow pain Disease Active 07-27 00:00: 00 [facility] LLEUS LLEUS Active 12/06/2021 [facility] Diagnosis Active 12-06 00:00: 00 2022-01-11 15:54:00 Jojo Lucio LG BOWEL OBSTRUCTIO N LG BOWEL OBSTRUCTIO N Active 12/06/2021 [facility] Diagnosis Active 9 00:00: 00 2021-12-06 20:41:00 Jojo uLcio BDDC/ Z12.11 SCREENING FOR MALIGNANT KASEY BDDC/ Z12.11 SCREENING FOR MALIGNANT KASEY Active 11/27/2015 [facility] Diagnosis Active 11-26 00:00: 00 2016-01-12 15:55:00 Jojo Lucio PRE LURD SURGICAL CONSULT PRE LURD SURGICAL CONSULT Active 11/04/2015 [facility] Diagnosis Active 11-03 00:00: 00 2015-12-04 08:37:00 Jojo Lucio COLON CANCER SCREENING COLON CANCER SCREENING Active 10/23/2015 [facility] Diagnosis Active 10-22 00:00: 00 2015-12-29 19:15:00 Jojo Lucio DONOR VISIT DONOR VISIT Active 09/30/2015 [facility] Diagnosis Active 09-29 00:00: 00 2015-11-15 15:33:00 Jojo Lucio RENAL PRE DONOR LABS RENAL PRE DONOR LABS Active 09/23/2015 [facility] Diagnosis Active 09-22 00:00: 00 2015-10-21 07:22:00 Jojo Lucio No known active problems No known active problems Disease [facility] Intestinal obstructio n co-occurre nt and due to decreased peristalsi s (disorder) Intestinal obstructio n co-occurre nt and due to decreased peristalsi s (disorder) Active Problem 12/08/2021 [facility] Problem Active 2021-12-08 22:39:46 Jojo Lucio BOWEL OBSTRUCTIO N BOWEL OBSTRUCTIO N Active [facility] Diagnosis Active 2021-12-06 20:20:00 Jojo barton Naveed ILEUS, UNSPECIFIE D ILEUS, UNSPECIFIE D Active [facility] Diagnosis Active 2022-01-11 15:54:00 Jojo Lucio ILLNESS, UNSPECIFIE D ILLNESS, UNSPECIFIE D Active [facility] Diagnosis Active 2021-12-06 20:41:00 Jojo Lucio Allergies, Adverse Reactions, Alerts Allergy Name Allergy Type Status Severity Reaction(s) Onset Date Inactive Date Treating Clinician Comments Source ALLERGIE S NOT ON FILE SYSTEMIC Active Jojo Lucio Epic NO KNOWN ALLERGIE S Drug Class Active [facility] No Known Medicati on Allergie s No Known Medicati on Allergie s Active Jojo Lucio Social History Social Habit Start Date Stop Date Quantity Comments Source Gender identity 2023-06-25 07:22:53 Identifies as male gender (finding) Gabriel Moe History of tobacco use Cigarette Smoker [facility] Sexual orientation M emorironald Lucio Epic Exposure to SARS-CoV-2 (event) Yes [facility] History of Social function 2023-09-09 00:00:00 2023-09-09 00:00:00 [facility] Tobacco use and exposure 2023-08-12 00:00:00 2023-08-12 00:00:00 Former smokeless tobacco user [facility] Social History 2021-12-07 03:23:17 2021-12-07 03:23:17 [facility] Sex assigned at 1950 00:00:00 1950 00:00:00 [facility] Smoking Status Start Date Stop Date Source Tobacco smoking consumption unknown [facility] Epi c Ex-smoker 2023-08-12 00:00:00 2023-08-12 00:00:00 [facility] Social [facility] Medications Ordered Medication Name Filled Medication Name Start Date Stop Date Current Medication? Ordering Clinician Indication Dosage Frequency Signature (SIG) Comments Components Source traMADol (Ultram) 50 MG tablet 08-11 00:00: 00 Yes [id number] 50mg Take 1 tablet (50 mg total) by mouth every 8 (eight) hours if needed for severe pain. [facility] meloxicam (Mobic) 15 MG tablet 08-11 00:00: 09-11 04:59 :00 No 15mg QD Take 1 tablet (15 mg total) by mouth 1 (one) time each day. [facility] methylPREDN ISolone (Medrol Dospak) 4 MG tablets 07-27 00:00: 00 Yes Follow schedule on package instructio ns [facility] methocarbam ol (Robaxin) 500 MG tablet 07-27 00:00: 00 08-27 04:59 :00 No [id number] 500mg QD Take 1 tablet (500 mg total) by mouth at night if needed for muscle spasms. [facility] esomeprazol e (NexIUM) [address] capsule 07-27 00:00: 00 08-18 04:59 :00 No [id number] 40mg Take 1 capsule (40 mg total) by mouth 1 (one) time each day before breakfast for 21 days. Do not open capsule. [facility] meloxicam (Mobic) 15 MG tablet 07-27 00:00: 00 08-11 00:00 :00 No 15mg QD Take 1 tablet (15 mg total) by mouth 1 (one) time each day for 15 days. [facility] FENTanyl PF (SUBLIMAZE (PF)) injection 50 mcg 07-01 03:00: 00 07-01 02:13 :00 No 50ug 50 mcg, Intramuscu lar, ONCE, 1 dose, On Tue07/01/23 at 2200, Routine [facility] methocarbam oL 750 mg tablet 06-30 00:00: 00 Yes [id number] 750mg Take 1 tablet by mouth every 6 (six) hours as needed for Pain (scale 1-3). [facility] HYDROcodone -acetaminop hen 5-325 mg tablet 06-29 00:00: 00 07-07 04:59 :00 No [id number] 1{tbl} Take 1-2 tablets by mouth every 6 (six) hours as needed for Pain (scale 4-6) for up to 7 days. Indication s: acute pain [facility] fluticasone propionate 50 mcg/actuati on nasal spray 12-02 00:00: 00 Yes [id number] 1{spray } Use 1 Amelia in each nostril in the morning. [facility] naproxen (NAPROSYN) tablet 500 mg 11-29 21:15: 00 11-29 20:15 :00 No 500mg 500 mg, Oral, ONCE, 1 dose, On Tue11/29/22 at 1615, Routine [facility] naproxen (NAPROSYN) 500 mg tablet 11-29 00:00: 00 Yes [id number] 500mg Take 1 tablet by mouth in the morning and 1 tablet in the evening. Take with meals. [facility] ondansetron (ZOFRAN-ODT ) disintegrat ing tablet 4 mg 05-10 01:15: 00 05-10 00:12 :00 No 4mg 4 mg, Oral, ONCE, 1 dose, Tue05/09/20 at 1915, Routine [facility] NaCl 0.9% (NS) bolus infusion 1,000 mL 05-10 00:30: 00 05-10 02:56 :00 No 1000mL at 999 mL/hr, 1,000 mL, IV Infusion, ONCE, 1 dose, Tue05/09/20 at 1830, STAT [facility] ondansetron (ZOFRAN ODT) 4 mg disintegrat ing tablet 2 00:00: 00 Yes [id number] 4mg Take 1 tablet by mouth every 8 (eight) hours as needed for Nausea and Vomiting (N/V). [facility] albuterol 90 mcg/actuati on inhaler 05-09 00:00: 00 Yes [id number] 2{puff} Inhale 2 Puffs every 4 (four) hours as needed for Wheezing or Shortness of Breath. [facility] GoLYTELY oral powder for reconstitut ion 11-26 14:56: 00 No 240 mL, PO, Q10Min, # 1 ea, 0 Refill(s), Pharmacy: [facility] [id number] Jojo Lucio Vital Signs Vital Name Observation Time Observation Value Comments S ource Body height 2023-07-28 15:22:00 [facility]3 [facility] weight 2023-07-28 15:22:00 [facility].111 [facility] BMI 2023-07-28 15:22:00 25[facility]10 [facility] 2023-07-21 19:52:00 172.7 cm [facility] Body weight 2023-07-21 19:52:00 77.474 kg [facility] BMI 2023-07-21 19:52:00 25.97 kg/m2 [facility] Systolic blood pressure 2023-07-07 18:53:00 147 mm[Hg] [facility] Diastolic blood pressure 2023-07-07 18:53:00 73 mm[Hg] [facility] Heart rate 2023-07-07 18:53:00 75 /min [facility] Body height 2023-07-07 18:53:00 175.3 cm [facility] Body weight 2023-07-07 18:53:00 78.654 kg [facility] BMI 2023-07-07 18:53:00 25.61 kg/m2 [facility] Oxygen saturation in Arterial blood by Pulse oximetry 2023-07-07 18:53:00 98 /min [facility] Systolic blood pressure 2023-07-07 13:44:00 146 mm[Hg] [facility] Diastolic blood pressure 2023-07-07 13:44:00 78 mm[Hg] [facility] Heart rate 2023-07-07 13:44:00 74 /min [facility] Respiratory rate 2023-07-07 13:44:00 18 /min [facility] Body height 2023-07-07 13:44:00 175.3 cm [facility] Body weight 2023-07-07 13:44:00 78.971 kg [facility] BMI 2023-07-07 13:44:00 25.71 kg/m2 [facility] Oxygen saturation in Arterial blood by Pulse oximetry 2023-07-07 13:44:00 96 /min [facility] Systolic blood pressure 2023-07-02 02:14:00 140 mm[Hg] [facility] Diastolic blood pressure 2023-07-02 02:14:00 64 mm[Hg] [facility] Heart rate 2023-07-02 02:14:00 81 /min [facility] Respiratory rate 2023-07-02 02:14:00 15 /min [facility] Oxygen saturation in Arterial blood by Pulse oximetry 2023-07-02 02:14:00 96 /min [facility] Body temperature 2023-07-02 02:01:00 37 Khushboo [facility] Body height 2023-07-02 02:01:00 175.3 cm [facility] Body weight 2023-07-02 02:01:00 77.111 kg [facility] BMI 2023-07-02 02:01:00 25.10 kg/m2 [facility] Systolic blood pressure 2023-06-30 20:00:00 121 mm[Hg] [facility] Diastolic blood pressure 2023-06-30 20:00:00 78 mm[Hg] [facility] Heart rate 2023-06-30 20:00:00 60 /min [facility] Respiratory rate 2023-06-30 20:00:00 18 /min [facility] Oxygen saturation in Arterial blood by Pulse oximetry 2023-06-30 20:00:00 96 /min [facility] Body temperature 2023-06-30 16:27:00 36.5 Khushboo [facility] Body height 2023-06-30 16:27:00 172.7 cm [facility] Body weight 2023-06-30 16:27:00 77.111 kg [facility] BMI 2023-06-30 16:27:00 25.85 kg/m2 [facility] Body height 2022-12-02 19:09:00 174 cm [facility] Body weight 2022-12-02 19:09:00 75.524 kg [facility] BMI 2022-12-02 19:09:00 24.95 kg/m2 [facility] Systolic blood pressure 2022-11-29 18:59:00 154 mm[Hg] [facility] Diastolic blood pressure 2022-11-29 18:59:00 74 mm[Hg] [facility] Heart rate 2022-11-29 18:59:00 69 /min [facility] Body temperature 2022-11-29 18:59:00 37 Khushboo [facility] Respiratory rate 2022-11-29 18:59:00 20 /min [facility] Body weight 2022-11-29 18:59:00 74.844 kg [facility] Oxygen saturation in Arterial blood by Pulse oximetry 2022-11-29 18:59:00 99 /min [facility] Systolic blood pressure 2020-05-10 02:56:00 153 mm[Hg] [facility] Diastolic blood pressure 2020-05-10 02:56:00 63 mm[Hg] [facility] Heart rate 2020-05-10 02:56:00 87 /min [facility] Respiratory rate 2020-05-10 02:56:00 16 /min [facility] Oxygen saturation in Arterial blood by Pulse oximetry 2020-05-10 02:56:00 97 /min [facility] Body weight 2020-05-10 00:07:00 74.844 kg [facility] Body temperature 2020-05-09 23:44:00 37.06 [facility] Systolic blood pressure 2020-05-10 02:56:00 153 mm[Hg] [facility] Diastolic blood pressure 2020-05-10 02:56:00 63 mm[Hg] [facility] Heart rate 2020-05-10 02:56:00 87 /min [facility] Respiratory rate 2020-05-10 02:56:00 16 /min [facility] Oxygen saturation in Arterial blood by Pulse oximetry 2020-05-10 02:56:00 97 /min [facility] Body weight 2020-05-10 00:07:00 74.844 kg [facility] Body temperature 2020-05-09 23:44:00 37.06 Khushboo [facility] Weight 2015-12-04 14:25:00 [facility] Rate 2015-12-04 14:25:00 [facility] [place] Heart Rate 2015-12-04 14:25:00 [facility] [place] BMI Calculated 2015-12-04 14:25:00 [facility] Height 2015-12-04 14:25:00 172 cm [facility] [place] Systolic (mm Hg) 2015-12-04 14:25:00 [facility] [place] Diastolic (mm Hg) 2015-12-04 14:25:00 [facility] [place] Height 2015-11-27 14:36:00 172.72 cm [facility] BMI Calculated 2015-11-27 14:36:00 [facility] Weight 2015-11-27 14:36:00 [facility] Heart Rate 2015-11-27 14:36:00 [facility] Systolic (mm Hg) 2015-11-27 14:36:00 [facility] Diastolic (mm Hg) 2015-11-27 14:36:00 [facility] Respitory Rate 2015-10-21 12:36[facility] Systolic (mm Hg) 2015-10-21 12:36:00 [facility] [place] Diastolic (mm Hg) 2015-10-21 12:36:00 [facility] Height 2015-10-21 12:36:00 173 cm [facility] Weight 2015-10-21 12:36:00 [facility] BMI Calculated 2015-10-21 12:36:00 [facility] Heart Rate 2015-10-21 12:36:00 [facility] [place] Procedures Procedure Date / Time Performed Performing Clinician Source MR ELBOW RIGHT WO CONTRAST 2023-07-06 22:28:00 Naif Wilcox [facility] US DUPLEX VENOUS ARM RIGHT - BY VASCULAR LAB 2023-06-30 20:03:33 Danny Rivera [facility] XR HUMERUS 2 VW RIGHT 2023-06-30 18:42:26 Hipolito Rivera [facility] CT FOREARM RIGHT WO CONTRAST 2023-06-30 17:09:00 Danny Rivera [facility] CONSENT/REFUSAL FOR DIAGNOSIS AND TREATMENT 2022-11-29 18:54:35 Doctor Unassigned, [place] [facility] BASIC METABOLIC PANEL (NA, K, CL, CO2, GLUCOSE, BUN, CREATININE, CA) 2020-05-10 00:19:00 Jasmeet Wallace [facility] CBC WITHOUT DIFF 2020-05-10 00:19:00 Jasmeet Wallace [facility] NOTICE OF PRIVACY PRACTICES 2020-05-09 23:38:29 Doctor Unassigned, [place] [facility] Cholecystectomy [facility] Arthroscopy of knee<sup>1</sup> [facility] [place] Encounters Start Date/Time End Date/Time Encounter Type Admission Type Attending Clinicians Care Facility Care Department Encounter ID Source 2024-05-02 11:39:14 2024-05-02 11:39:[address] [facility] [id number] Hussein Freire 2024-02-15 10:53:34 2024-02-15 10:53:[address] [facility] [id number] Hussein Freire 2023-12-20 08:15:42 2023-12-20 08:15:42 Outpatient [facility] [id number] Hussein Freire 2023-12-13 08:31:08 2023-12-13 08:31:08 Outpatient [facility] [id number] Hussein Freire 2023-09-12 12:00:00 2023-09-12 23:59:00 Hospital Encounter Elective Angeline Oliveira [facility] 1.2.840.114 350.1.13.70 8.2.7.2.686 [id number] [facility] 2023-09-09 12:45:00 2023-09-09 13:13:18 Office Visit Daniel Hurst [facility] [address] 1.2.840.114 350.1.13.58 9.2.7.2.686 [id number] [facility] 2023-09-08 13:30:00 2023-09-08 13:30:00 Outpatient GETACHEW JONES [facility] [id number] [facility] 2023-08-12 00:00:00 2023-08-12 15:04:18 Outpatient [facility] [id number] [facility] 2023-08-12 11:30:00 2023-08-12 12:44:12 Office Visit Angeline Oliveira [facility] [address] 1.2.840.114 350.1.13.58 9.2.7.2.686 [id number] [facility] 2023-08-02 10:30:00 2023-08-02 10:30:00 Outpatient MELANIE MACHADO [facility] [id number] [facility] 2023-08-02 10:00:00 2023-08-02 10:00:00 Outpatient ANGELINE OLIVEIRA [facility] [id number] [facility] 2023-08-01 08:15:16 2023-08-01 08:15:16 Outpatient [facility] [id number] Hussein Freire 2023-07-28 10:15:00 2023-07-28 11:19:51 Outpatient [facility] [id number] [facility] 2023-07-28 10:15:00 2023-07-28 11:19:09 Office Visit Getachew Jones [place] [facility] [place] 1.2.840.114 350.1.13.58 9.2.7.2.686 [id number] [facility] 2023-07-28 08:00:00 2023-07-28 08:00:00 Outpatient R FELICITAS WALLACE [facility] [id number] [facility] 2023-07-21 15:05:14 2023-07-21 23:59:00 Hospital Encounter Felicitas Wallace [facility] 1..840.114 350.1.13.10 4.2.7.2.686 [id number] [facility] 2023-07-21 15:00:00 2023-07-21 15:43:10 Outpatient R FELICITAS WALLACE [facility] [id number] [facility] 2023-07-21 15:00:00 2023-07-21 15:43:10 Office Visit Felicitas Wallace [facility] 1..840.114 350.1.13.10 4.2.7.2.686 [id number] [facility] 2023-07-13 08:22:45 2023-07-13 08:22:45 Outpatient [facility] [id number] Hussein Freire 2023-07-07 14:00:05 2023-07-07 23:59:00 Hospital Encounter Felicitas Wallace [facility] 1..840.114 350.1.13.10 4.2.7.2.686 [id number] [facility] 2023-07-07 13:30:00 2023-07-07 14:31:41 Office Visit Felicitas Wallace [facility] 1.2.840.114 350.1.13.10 4.2.7.2.686 [id number] [facility] 2023-07-07 08:54:00 2023-07-07 13:59:00 Hospital Encounter Felicitas Wallace [facility] 1.2.840.114 350.1.13.10 4.2.7.2.686 [id number] [facility] 2023-07-07 09:00:00 2023-07-07 10:10:22 Outpatient R FELICITAS WALLACE FELICITAS [facility] [id number] [facility] 2023-07-07 09:00:00 2023-07-07 10:10:22 Office Visit Felicitas Wallace [facility] 1..840.114 350.1.13.10 4.2.7.2.686 [id number] [facility] 2023-07-06 15:22:43 2023-07-06 23:59:00 Hospital Encounter Radiology [facility] 1.2.840.114 350.1.13.10 4.2.7.2.686 [id number] [facility] 2023-07-06 15:22:43 2023-07-06 23:59:00 Outpatient R RADIOLOGY [facility] [id number] [facility] 2023-07-01 21:05:00 2023-07-01 22:56:00 Emergency X LINDA PENALOZA [facility] [id number] [facility] 2023-07-01 21:05:00 2023-07-01 22:56:00 Emergency Linda Penaloza [facility] 1.2.840.114 350.1.13.10 4.2.7.2.686 [id number] [facility] 2023-06-30 11:29:00 2023-06-30 16:11:00 Emergency X DANNY RIVERA [facility] [id number] [facility] 2023-06-30 11:29:00 2023-06-30 16:11:00 Emergency Danny Rivera [facility] 1..840.114 350.1.13.10 4.2.7.2.686 [id number] [facility] 2023-06-27 14:12:22 2023-06-27 14:12:[address] [facility] [id number] Hussein Freire 2023-06-02 16:00:00 2023-06-02 16:00:00 Outpatient R MARC HERNANDEZ [facility] [id number] [facility] 2023-01-28 12:15:00 2023-01-28 12:15:00 Outpatient R SYDNEE PINEDA [facility] [id number] [facility] 2023-01-24 14:53:40 2023-01-24 14:53:40 Outpatient [facility] [id number] Hussein Freire 2023-01-18 09:41:31 2023-01-18 09:41:31 Outpatient [facility] [id number] Hussein Freire 2022-12-02 14:30:00 2022-12-02 14:57:57 Outpatient R MARC HERNANDEZ [facility] [id number] [facility] 2022-12-02 14:30:00 2022-12-02 14:57:57 Office Visit Marc Hernandez [facility] [employer] [facility] 1.2.840.114 350.1.13.10 4.2.7.2.686 [id number] [facility] 2022-11-29 14:01:00 2022-11-29 15:28:00 Emergency X Leland LIGHT [facility] [id number] [facility] 2022-11-29 14:01:00 2022-11-29 15:28:00 Emergency Leland Light [facility] 1.2.840.114 350.1.13.10 4.2.7.2.686 [id number] [facility] 2021-12-06 20:39:00 2021-12-07 15:10:[address] [facility] [id number] [facility] 2020-05-09 17:48:00 2020-05-09 21:02:00 Emergency Jasmeet Wallace [facility] 1.2.840.114 350.1.13.10 4.2.7.2.686 [id number] [facility] 2020-05-09 17:48:00 2020-05-09 21:02:00 Emergency Jasmeet Wallace [facility] 1.2.840.114 350.1.13.10 4.2.7.2.686 [id number] 2020-05-09 17:40:00 2020-05-09 17:40:00 Emergency JASMEET KASPER [facility] [id number] [facility] Results Test Description Test Time Test Comments Results Result Comments Source MR ELBOW RIGHT WO CONTRAST 22:50:13 EXAM: MRI RIGHT ELBOW COMPARISON: Elbow radiographs dated 07/01/2023 HISTORY: MR Right Elbow with contrast TECHNIQUE AND FINDINGS: Multiplanar multiweighted MR imaging of the right elbow was performed. BONE AND JOINT: Large sized effusion is present. Scattered subcortical T2 signal increaseis present at the proximal medial olecranon adjacent to the olecranonhumeral articulation. Subcortical T2 signal increase also involves thecoronoid process, anterior margin radial head and capitellum. IntermediateT2 signal is seen throughout the cubital tunnel with T2 signal increasesurrounding the ulnar nerve. Anatomic positioning of the ulnar nerve isnoted at the cubital tunnel. . LIGAMENTS /TENDONS/SOFT TISSUESThere is detachment of the anterior band ulnar collateral ligament from thehumeral origin with at least 2 cm distal retraction of the ligament fromthe humerus. Additionally, the common flexor tendon is detached from themedial humeral epicondyle with at least 1.7 cm distal tendon retraction.The proximal fibers of the lateral ulnar collateral ligament and radialcollateral ligament appear disrupted at the humeral origin and there is C7mawqqx increase undercutting the proximal common extensor tendon fiberscompromising at least 50% of the thickness of the tendon at this level. Theannular ligament appears intact. The triceps, biceps and brachialis tendonsare intact. There is no muscle atrophy or edema. Diffuse subcutaneous E8dzetik increase is present. Subcutaneous fluid collection is seen over themedial elbow joint line communicating with the medial joint capsule. Thisfluid collection measures 5.1 cm in anterior posterior dimension.Intramuscular T2 signal increase is seen, most notable within the flexormusculature. [facility] XR HUMERUS 2 VW RIGHT 19:16:57 EXAM: XR HUMERUS 2 VW RIGHT HISTORY: r/o fracture COMPARISON: None available FINDINGS: Imaging of the humerus demonstrates a fiberglass splint in place over thedistal humerus limiting evaluation. Marginal osteophytes are present at theAC joint with an associated fragmented osteophyte adjacent to the clavicle.No lytic or blastic bony lesion is noted. No aggressive bony destructivechange or periosteal reaction is appreciated. No acute bony abnormality isdemonstrated. [facility] CT ELBOW RIGHT WO CONTRAST 17:33:38 EXAM: CT ELBOW RIGHT WO CONTRAST HISTORY: Trauma COMPARISON: None available FINDINGS: Multiplanar CT imaging of the right elbow was performed with separate 3-Dreconstructions submitted for evaluation. Faint calcifications are present. Soft tissue swelling with subcutaneousfat stranding is seen at the posterior and medial elbow. A 4 mm ossificfocus abuts the medial trochlea. Linear calcific densities seen at thecommon extensor tendon origin. Calcific densities are noted over the medialjoint line. Elbow joint effusion is partially profiled. No lytic or blasticbony lesion is noted. No aggressive bony destructive change or periostealreaction is appreciated. [facility] CT FOREARM RIGHT WO CONTRAST 17:29:25 EXAM: CT FOREARM RIGHT WO CONTRAST HISTORY: Forearm trauma COMPARISON: None available FINDINGS: Multiplanar CT imaging of the right forearm was performed with separate 3-Dreconstructions submitted for evaluation. Arterial calcifications are present. Soft tissue swelling with subcutaneousfat stranding is seen at the posterior and medial elbow and throughout theforearm. Cystic changes noted at the ulnar fovea. A subcentimeter remoteosseous avulsion is noted over the dorsal carpus related to a remotetriquetral fracture. A pinpoint dystrophic calcification versus remoteavulsion abuts the medial trochlea. Mild dorsal subluxation at the distalradial ulnar subluxation at the distal radioulnar joint is likelypositional. Elbow joint effusion is partially profiled. No lytic or blasticbony lesion is noted. No aggressive bony destructive change or periostealreaction is appreciated. No acute bony abnormality is demonstrated. [facility] [id number] 00:32:00* Test Item Value Reference Range Interpretation Comme nts WBC (test code = 6690-2) See_Comment [[employer] The system which generated this result transmitted reference range: 4.20 - 10.70 10*3/?L. The reference range was not used to interpret this result as normal/abnormal. RBC (test code = 789-8) See_Comment [[employer] The system which generated this result transmitted [...] 31.2-35 PLT (test code = 777-3) See_Comment [[employer] The system which generated this result transmitted reference range: 150 - 328 10*3/?L. The reference range was not used to interpret this result as normal/abnormal. MPV (test code = 94088-2) 10.6 fL 9.8-13 RDW-CV (test code = 788-0) 12.1 % 12.1-15.4 RDW-SD (test code = 60650-0) 39.4 fL 38.5-51.6 NRBC x10^3 (test code = 5794307520) <0.01 See_Comment [[employer]] The system which generated this result transmitted reference range: 10*3/?L. The reference range was not used to interpret this result as normal/abnormal. NRBC/100 WBC (test code = 7771789530) See_Comment [[employer]] The system which generated this result transmitted reference range: 0.0 - 10.0 /100 WBCs. The reference range was not used to interpret this result as normal/abnormal. IPF % (test code = 5079089333) [facility] [id number] 12:43:00* Test Item Value Reference Range Interpretation Comme nts POC Creatinine (test code = POC Creatinine) 0.9 0.5-1.4 eGFR (test code = eGFR) [facility] LAB [id number] 13:58:00* Test Item Value Reference Range Interpretation Comme nts HLA Misc Test (test code = HLA Misc Test) See Report 1(09/23/15 8:58 AM) Test Name (test code = Test Name) HLA TYPING RESULTS [facility] Notes Date/Time Note Provider Source 2023-11-26 01:16:50 [facility]2024-03-29 22:55:10 Pt given printed and verbal discharge instructions regarding pain of RUE. Prescriptions provide Pt verbalized understanding of instructions, pt awake alert oriented, resp reg unlabored, skin w/d, color appropriate for race, moves all ext well,pt encouraged to follow up with pcp. Advised to seek medical attention for new/prolonged/worsening of symptoms. No adverse reaction to meds given in ER noted upon discharge Awake, alert oriented, resp reg unlabored, skin w/d, pt leaving amb with steady gait, in no apparent distress. k[facility] [id number] 20:59:15 Pt to ED via POV CO increased R arm pain since being discharged yesterday with orthoglass splint. Arm injured from fall on Tuesday. Denies injury to arm since DC. Took Kyle @ 1999, no relief. Mary [facility]a Critical access [id number] 20:51:00 [facility] Emergency Department Note Patient Name: Ta Aguilar Date of : 1950 72 year old male Treatment Room: [place] [address] Primary Care Physician: Taina Mckeon Patient Escorted by: Self [9] Mode of Arrival: Personal means [1] EMS Treatment Prior to ED Arrival: [facility]YSTER HARVESTER treatment: Medication (comment) OYSTER HARVESTER treatment comments: norco @ 1999 Travel and Exposure Screening: Symptoms Does patient have any of these symptoms?: (not recorded) Exposure Screening Has patient had contact with someone with a communicable disease in the last month?: (not recorded) Diseases exposed to:: (not recorded) Is Patient ?: (not recorded) Exposure Date: (not recorded) Chief Complaint: Chief Complaint Patient presents with Arm Pain History of Present Illness: The patient presents from home for evaluation for right arm pain. He suffered a fall on Tuesday and was seen here yesterday which was . He had x-rays as well as CTs of his right arm showing no fractures. He was given a long-arm splints and discharged home with prescription for Kyle. He reports that he has been taking it as prescribed but the pain is not improving. He reports he last took a dose around 8 PM tonight. He is right-handed. He denies any injury or fall since being discharged home yesterday. He is a follow-up appointment with orthopedics on July 06. Here for evaluation. Past Medical History/Immunizations: No past medical history on file. Tetanus received in last 5 years: No Childhood immunizations: Up-to-date Allergies: No Known Allergies Past Social History: Substance & Sexual Activity No substance use or sexual activity history on file. Past Surgical History: No past surgical history on file. Review of Systems: Review of Systems Constitutional: Negative for chills and fever. Respiratory: Negative for cough and shortness of breath. Cardiovascular: Negative for chest pain. Gastrointestinal: Negative for abdominal pain and vomiting. Genitourinary: Negative for dysuria. Musculoskeletal: Positive for arthralgias. Negative for neck pain and neck stiffness. Skin: Negative for wound. Neurological: Negative for dizziness. Psychiatric/Behavioral: Negative for agitation. Endocrine: Negative for goiter. Physical Exam: ED Triage Vitals [07/01/23 2101] Weight 77.1 kg (170 lb) Actual or estimated Estimated by patient/family report Height 1.753 m (5' 9") BP 135/75 Pulse 76 Resp 16 Temp 37 ?C (98.6 ?F) Temp source Oral SpO2 98 % Measured on Room air Physical Exam Vitals and nursing note reviewed. Constitutional: Appearance: Normal appearance. HENT: Head: Normocephalic and atraumatic. Cardiovascular: Rate and Rhythm: Normal rate and regular rhythm. Pulses: Normal pulses. Pulmonary: Effort: Pulmonary effort is normal. Abdominal: General: There is no distension. Musculoskeletal: Cervical back: Neck supple. Comments: Right arm in splint. Able to wiggle all fingers to right hand without difficulty. +2 radial pulse right side. Upper and lower arm compartments on right side are soft. Skin: General: Skin is warm and dry. Neurological: General: No focal deficit present. Mental Status: He is alert and oriented to person, place, and time. Radiology: XR ELBOW 3+ VW RIGHT Preliminary Result XR ELBOW 3+ VW RIGHT HISTORY: 72 years-old Male; right arm pain COMPARISON: CT elbow 06/30/2023 FINDINGS: External splint material obscures soft tissue and bony detail. Radiographs of the right elbow demonstrate no acute fracture or dislocation. The joint spaces are maintained. Significant soft tissue swelling about the elbow and proximal forearm. Bony fragments about the medial humeral condyle. IMPRESSION Soft tissue swelling without acute osseous abnormality. Preliminary Report Dictated by Resident: Doreen Heard Lab Results: Lab Results - No data to display EKG: If EKG completed, see Procedure Note. Orders and Treatments: Orders Placed This Encounter Procedures XR ELBOW 3+ VW RIGHT Orders Placed This Encounter Medications FENTanyl PF (SUBLIMAZE (PF)) injection 50 mcg methocarbamoL 750 mg tablet First Provider Eval: ED Events Date/Time Event User Comments 07/01/232056 Medical Screening Begins LINDA PENALOZA DO -- 07/01/232056 First Provider Evaluation LINDA PENALOZA DO -- ED COURSE Diagnosis/Impression as of 07/01/232234 Pain of right upper extremity Procedures: Procedures MDM: Medical Decision Making The patient presents from home for evaluation for right arm pain. He had a fall on Tuesday and was seen here yesterday which was Tuesday. He had x-rays as well as a CT of his right arm showing no fractures. He was given a long-arm splint and sent home with Ortho follow-up. He has been taking Kyle as prescribed reports his last dose was around 8 PM tonight. He is right-handed. He has follow-up with Ortho scheduled for July 06. He reports despite taking his pain medication his pain is not improving. Vital signs are stable in the ER. He has a long-arm splint in place to his right arm. +2 radial pulse right side. Able to wiggle all fingers of his right hand without difficulty. His upper and lower arm compartments on the right side are soft. No concern for compartment syndrome. Will give the patient additional pain medication here in the ER. Will repeat x-ray imaging to evaluate for possible occult fracture. Anticipate discharge home later. 2233 -the patient is doing well here in the ER. His pain has resolved after the medications given. His x-ray shows no acute osseous injuries. He remained stable here in the ER and is okay for discharge home with PCP follow. Problems Addressed: Pain of right upper extremity: acute illness or injury Amount and/or Complexity of Data Reviewed Radiology: ordered and independent interpretation performed. Decision-making details documented in ED Course. Risk OTC drugs. Prescription drug management. Parenteral controlled substances. Flowsheet Documentation: Scoring Tools: No data recorded Disposition/Condition: ED Disposition ED Disposition Disch - Home Condition Stable Comment -- Discharge Medications: Patient's Medications START taking these medications METHOCARBAMOL 750 MG TABLET Take 1 tablet by mouth every 6 (six) hours as needed for Pain (scale 1-3). CONTINUE taking these medications which have NOT CHANGED ALBUTEROL 90 MCG/ACTUATION INHALER Inhale 2 Puffs every 4 (four) hours as needed for Wheezing or Shortness of Breath. FLUTICASONE PROPIONATE 50 MCG/ACTUATION NASAL SPRAY Use 1 Amelia in each nostril in the morning. HYDROCODONE-ACETAMINOPHEN 5-325 MG TABLET Take 1-2 tablets by mouth every 6 (six) hours as needed for Pain (scale 4-6) for up to 7 days. Indications: acute pain NAPROXEN (NAPROSYN) 500 MG TABLET Take 1 tablet by mouth in the morning and 1 tablet in the evening. Take with meals. ONDANSETRON (ZOFRAN ODT) 4 MG DISINTEGRATING TABLET Take 1 tablet by mouth every 8 (eight) hours as needed for Nausea and Vomiting (N/V). START taking Modified Medications as Prescribed No medications on file STOP taking these medications No medications on file Follow-up: Electronically signed by: Linda Penaloza DO 07/01/232234 [place] 035524-03-28 16:10:47 [place]. Follow up with ortho. Verbalized understanding. Signed paper work. [facility]el Hair Critical access [id number] 14:32:12 Patient to [place]. [place] 035524-03-28 11:26:22 Patient reports that he fell off his porch Tuesday evening and injured his right arm. Patient states that he went to [facility] ER and X-ray's wre taken showing no fracture. Patient presents with a sling and states that the pain is too much and that he feels like there is something moving and broken in the area of his arm just near his elbow. T Casi [facility] Critical access [id number] 15:27:57 Pt given printed and verbal discharge instructions regarding Impacted ear wax, encouraged hydration, 1 Prescriptions provided Discussed ibuprofen and to take with food to avoid GI distress. Pt verbalized understanding of instructions, pt awake alert oriented, resp reg unlabored, skin w/d,color appropriate for race, moves all ext well,pt encouraged to follow up with pcp Advised to seek medical attention for new/prolonged/worsening of symptoms, No adverse reaction to meds given in ER noted upon discharge Awake, alert oriented, resp reg unlabored, skin w/d, pt leaving amb with steady gait, in no apparent distress, [id number] 13:58:31 Patient reports that he began to have pain in his right ear over the weekend. States that he calledhis PCP Dr. Enriquez and no appointments were available for 2 weeks. Taking Tylenol with minimal relief for the pain. Casi [facility] Critical access [id number] 10:40:00* EXAM: XR CHEST 2 VIEWS DATE: 10/10/2015 2:57 PM CDT INDICATION: Renal transplant evaluation FINDINGS: PA and lateral views of the chest are submitted without a prior radiograph for comparison. The heart is not enlarged. There are aortic arch calcifications. There is a calcified granuloma in the right lower lobe. There may also be some in the left upper lobe. Otherwise, the lungs are clear of edema, consolidation, or lobar collapse. No pleural effusions. Note is made of cholecystectomy clips. The bones are unremarkable. IMPRESSION: No acute abnormality identified. [facility]2016-09-01 07:40:00* EXAM: CTA Abdomen and Pelvis DATE: 12/04/2015 7:24 AM CDT INDICATION: RENAL DONOR ADDITIONAL INFORMATION: None. COMPARISON: None. TECHNIQUE: Volumetric CT acquisition of the abdomen and pelvis, in pre contrast, arterial and venous phase. Axial, coronal and sagittal reconstructions. MIP reformats are created at the acquisition workstation. FINDINGS: Lungs are clear of active disease. This calcified granuloma at the right martha which indicates old granulomatous disease. Single renal arteries are present bilaterally. The left renal artery to the 1st bifurcation is about 30.4 mm in length and the right is about 43.9 mm to the 1st bifurcation. Angle renal veins bilaterally are present. No renal artery narrowing is present. Renal cortex is good bilaterally and normal. I kidney is 87.8 mm in length and left is around 83.4 mm in length. Her graft SMA celiac and NGUYEN are normal without narrowing except for some slight atherosclerotic calcification in the SMA origin which does not cause significant narrowing. Pancreas is normal. Gallbladder has been removed and there are surgical clips. Liver and spleen are normal. Adrenals are normal. Hiatal hernia present. Delayed topogram show single ureters without hydronephrosis. There appears to be coronary artery calcification present. On the late images the bladder is normal. The prostate is enlarged. There are diverticuli present in the colon. IMPRESSION: Renal donor study. See body of report [facility]2016-07-28 08:30:00* EXAM: NM Kidney Function Non Imaging Radioisotopic Study DATE: 10/30/2015 INDICATION: 64-year-old male undergoing kidney donor evaluation. COMPARISON: None available TECHNIQUE: After IV injection of 29 uCi iodine-125 iothalamate, sequential blood samples were obtained over approximately 5 hours. The samples were counted with radioactivity and GFR was calculated based on the rate of radiotracer excretion. FINDINGS: There is good clearance of tracer from the blood over the interval of the study suggestive of good renal function. IMPRESSION: The body surface corrected GFR is 93.2 ml/min/1.73 m2, which is within the normal range of 74-142 ml/min/1.73 m2. [facility]
[2024-12-29] MEDS ORDERED: IPRATROPIUM BROM 0.5MG/2.5ML ONE (20:21)
[2024-12-29] MEDS ORDERED: ALBUTEROL 2.5 MG/3 ML NEB SOL ONE (20:21)
[2024-12-29 20:58] LABS: Influenza A Ag Negative; Influenza B Ag Negative; SARS-CoV-2 Antigen Rapid Res Negative (Negative)
--- NOTE | 2024-12-29 21:49 | EDPHYS ---
Physician Documentation [facility] Name: Feliz Parkinson Age: 74 yrs Sex: Male : 1950 Arrival Date: 12/29/2024 Time: 20:12 Bed 20 Private MD: ED Physician Beny Gonzalez HPI: 12/29 21:47 This 74 yrs old Male presents to ER via Ambulatory with complaints of Asthma kb Exacerbation. 21:47 Patient is a 74-year-old male who presents for asthma exacerbation that started 4 days kb ago. States he has had a little sore throat and sinus drainage as well. States he came in tonight because he ran out of his inhaler and nebulizer solution. Was unable to make an appointment with PCP.. Historical: - Allergies: 20:35 No Known Allergies; cp4 - PMHx: 20:35 Asthma; cp4 - PSHx: 20:35 Cholecystectomy; cp4 - Immunization history:: Adult Immunizations up to date. - Infectious Disease History:: Denies. - Social history:: Smoking status: Patient denies any tobacco usage or history of. ROS: 21:45 Constitutional: As per HPI kb Exam: 21:45 Constitutional: This is a well developed, well nourished patient who is awake, alert, kb and in no acute distress. Head/Face: Normocephalic, atraumatic. ENT: Moist Mucous membranes Cardiovascular: Regular rate Respiratory: Respirations even and unlabored. No increased work of breathing. Talking in full sentences Skin: Warm, dry with normal turgor. Normal color. MS/ Extremity: Pulses equal, no cyanosis. Neurovascular intact. Full, normal range of motion. Neuro: Awake and alert, GCS 15, oriented to person, place, time, and situation. Vital Signs: 20:33 BP 167 / 73; Pulse 78; Resp 18; Temp 98.3; Pulse Ox 97% ; Weight 79.38 kg; Height 5 ft. cp4 7 in. ; Pain 0/10; 22:00 BP 148 / 76; Pulse 76; Resp 18; Pulse Ox 99% ; cp4 20:33 Body Mass Index 27.41 (79.38 kg, 170.18 cm) cp4 20:33 Pain Scale: Adult cp4 MDM: 20:16 Medical Screening Exam initiated kb 21:47 Differential diagnosis: acute asthma, URI, COVID, flu, pneumonia. Data reviewed: vital kb signs, nurses notes. I considered the following discharge prescriptions or medication management in the emergency department I discussed and recommended Over The Counter medications, Antibiotics: At this time antibiotics are not recommended. Test considered but Not performed: X-ray: Chest x-ray considered but lungs clear bilaterally, respirations even and unlabored. Counseling: I had a detailed discussion with the patient and/or guardian regarding the historical points, exam findings, and any diagnostic results supporting the discharge/admit diagnosis, lab results, the need for outpatient follow up, a family practitioner, to return to the emergency department if symptoms worsen or persist or if there are any questions or concerns that arise at home. 12/29 20:19 Order name: COVID-19 Ag + Flu A+B Ag; Complete Time: 20:58 kb Administered Medications: 20:28 Drug: Albuterol Inhalation 2.5 mg Inhalation once Route: Inhalation; kj2 20:28 Drug: Ipratropium Inhalation Aerosol 0.5 mg Inhalation once Route: Inhalation; kj2 22:00 Drug: predniSONE PO 40 mg PO once Route: PO; cp4 22:00 Follow up: Response: No adverse reaction cp4 Disposition: 12/30 19:29 Co-signature as Attending Physician, Beny Gonzalez MD I agree with the assessment sp4 and plan of care. I reviewed the patient's care provided by the Advanced Practice Provider and agree with the diagnosis and treatment plan. Disposition Summary: 12/29/24 21:48 Discharge Ordered Notes: Location: Home kb Condition: Stable kb Diagnosis - Unspecified asthma with (acute) exacerbation kb Followup: kb - With: Emergency Department - When: As needed - Reason: Worsening of condition Followup: kb - With: Private Physician - When: 2 - 3 days - Reason: Recheck today's complaints, Continuance of care, Re-evaluation by your physician Discharge Instructions: - Discharge Summary Sheet kb - Asthma, Adult, [id number]-us-[id number] kb Forms: - Medication Reconciliation Form kb - Antibiotic Education kb - Prescription Opioid Use kb - Patient Portal Instructions kb - Leadership Thank You Letter kb Prescriptions: - albuterol sulfate 90 mcg/actuation Inhalation HFA Aerosol Inhaler - inhale 2 puff INHALATION route every 4 to 6 hours as needed for shortness of kb breath or wheezing; 1 unit; Refills: 0, Product Selection Permitted - Prednisone 20 mg Oral Tablet - take 1 tablet ORAL route once daily for 5 days; 5 tablet; Refills: 0, Product kb Selection Permitted - Albuterol Sulfate 2.5 mg /3 mL (0.083 %) Inhalation Solution for Nebulization - inhale 1 unit NEBULIZATION route every 8 hours As needed; 1 Unspecified; kb Refills: 0, Product Selection Permitted Signatures: Dispatcher [employer] Ruth Miranda, Beny Rizzo MD MD sp4 [place] cp4 Araceli Chavira, RN RN kj2
--- NOTE | 2024-12-29 21:49 | ER ---
Nurse's Notes [facility] Name: Feliz Parkinson Age: 74 yrs Sex: Male : 1950 Arrival Date: 12/29/2024 Time: 20:12 Bed 20 Private MD: Diagnosis: Unspecified asthma with (acute) exacerbation Presentation: 12/29 20:33 Chief complaint: Patient states: asthma exacerbation that started today. Ran out of cp4 prescription and cannot get a refill without seeing the doctor. Coronavirus screen: Client denies travel out of the [place] in the last 14 days. At this time, the client does not indicate any symptoms associated with coronavirus-19. Ebola Screen: Patient negative for fever greater than or equal to 101.5 degrees Fahrenheit, and additional compatible Ebola Virus Disease symptoms Patient denies exposure to infectious person. Patient denies travel to an Ebola-affected area in the 21 days before illness onset. No symptoms or risks identified at this time. Initial Sepsis Screen: Does the patient meet any 2 criteria? No. Patient's initial sepsis screen is negative. Does the patient have a suspected source of infection? No. Patient's initial sepsis screen is negative. Risk Assessment: Do you want to hurt yourself or someone else? Patient reports no desire to harm self or others. Onset of symptoms was December 29, 2024. 20:33 Method Of Arrival: Ambulatory cp4 20:33 Acuity: RAYNA 3 cp4 Triage Assessment: 20:35 General: Appears in no apparent distress. uncomfortable, Behavior is calm, cooperative, cp4 appropriate for age. Pain: Denies pain. Historical: - Allergies: 20:35 No Known Allergies; cp4 - PMHx: 20:35 Asthma; cp4 - PSHx: 20:35 Cholecystectomy; cp4 - Immunization history:: Adult Immunizations up to date. - Infectious Disease History:: Denies. - Social history:: Smoking status: Patient denies any tobacco usage or history of. Vital Signs: 20:33 BP 167 / 73; Pulse 78; Resp 18; Temp 98.3; Pulse Ox 97% ; Weight 79.38 kg; Height 5 ft. cp4 7 in. ; Pain 0/10; 22:00 BP 148 / 76; Pulse 76; Resp 18; Pulse Ox 99% ; cp4 20:33 Body Mass Index 27.41 (79.38 kg, 170.18 cm) cp4 20:33 Pain Scale: Adult cp4 ED Course: 20:15 Patient arrived in ED. im 20:15 Ruth Negrete FNP-C is [facility]. kb 20:15 Beny Gonzalez MD is Attending Physician. kb 20:27 Livia Bhakta, RN is Primary Nurse. ss12 20:35 Triage completed. cp4 20:35 Arm band placed on right wrist. Patient placed in waiting room. cp4 Administered Medications: 20:28 Drug: Albuterol Inhalation 2.5 mg Inhalation once Route: Inhalation; kj2 20:28 Drug: Ipratropium Inhalation Aerosol 0.5 mg Inhalation once Route: Inhalation; kj2 22:00 Drug: predniSONE PO 40 mg PO once Route: PO; cp4 22:00 Follow up: Response: No adverse reaction cp4 Outcome: 21:48 Discharge ordered by MD. kb 22:01 Discharged to home ambulatory, cp4 22:01 Condition: stable 22:01 Discharge instructions given to patient, Instructed on discharge instructions, follow up and referral plans. medication usage, Demonstrated understanding of instructions, follow-up care, medications, Prescriptions given X 3, 22:01 Patient left the ED. cp4 Signatures: Ruth Negrete FNP-C FNP-Mirna Whitney [place] cp4 Araceli Chavira, RN RN kj2 Livia Bhakta, SOFIE RN ss12
[2024-12-29] MEDS ORDERED: predniSONE 20 MG TAB ONE (21:57)
[2024-12-29 22:05] VITALS: TEMP 98.3
[2024-12-29 22:06] VITALS: BP 148/76; O2SAT 99
== END 2024-12-29 22:01 | disposition home or self-care (01) ==
LOC: ER 20:12
DX: J45.901 Unspecified asthma with (acute) exacerbation (principal); J02.9 Acute pharyngitis, unspecified; Z11.52 Encounter for screening for COVID-19
CPT/HCPCS: 36415; 99284; 87428; J7512; J7613; J7644